=== PATIENT | male | born 1965 | race Caucasian/White ===

== ENCOUNTER 2018-07-23 11:14 | Emergency (ER) | payer BC ==
[2018-07-23 15:33] LABS: BASO % 0.2 % (0.0-1.0); EOS # 0.1 10^3/uL (0.0-0.50); EOS % 0.9 % (0.0-3.0); HEMATOCRIT 50.8 % (42.0-52.0); HEMOGLOBIN 17.1 g/dl (13.5-17.5); IMMATURE GRANULOCYTE % 0.5 % (0-3.0); LYMPH # 1.3 10^3/uL (1.5-4.5); LYMPH % 15.3 % (24.0-44.0); MEAN CORPUSCULAR HEMOGLOBIN 29.9 pg (27.0-33.0); MEAN CORPUSCULAR HGB CONC 33.7 g/dl (32.0-36.5); MONO # 0.4 10^3/uL (0.0-0.8); NEUTROPHILS % 79.1 % (36.0-66.0); PLATELET COUNT, AUTOMATED 187 10^3/uL (150-450); RED BLOOD COUNT 5.71 10^6/uL (4.30-6.10); RED CELL DISTRIBUTION WIDTH 13.5 % (11.5-14.5); WHITE BLOOD COUNT 8.8 10^3/uL (4.0-10.0)
[2018-07-23] MEDS: NS 1,000 ML IV (15:34)
[2018-07-23] MEDS: MECLIZINE 25 MG TABLET PO (15:34)
[2018-07-23] MEDS: ONDANSETRON 4MG/2ML VIAL (J2405) IV (15:34)
[2018-07-23 16:02] LABS: ANION GAP 8 MEQ/L (8-16); BLOOD UREA NITROGEN 7 MG/DL (7-18); CARBON DIOXIDE LEVEL 27 MEQ/L (21-32); CHLORIDE LEVEL 107 MEQ/L (98-107); CPK CREATINE PHOSPHOKINASE 92 U/L (39-308); CREATININE FOR GFR 0.75 MG/DL (0.70-1.30); GLOMERULAR FILTRATION RATE > 60.0 (>56); GLUCOSE, FASTING 104 MG/DL (70-100); POTASSIUM SERUM 4.1 MEQ/L (3.5-5.1); SODIUM LEVEL 142 MEQ/L (136-145); TROPONIN I < 0.02 NG/ML (< 0.10)
[2018-07-23 16:08] LABS: CK-MB VALUE MASS < 1.0 NG/ML (<3.6); MB/CK RELATIVE INDEX 1.08 (< OR =4); THYROID STIMULATING HORMONE 0.749 uIU/ML (0.358-3.740)
[2018-07-23] MEDS: diazePAM 5 MG TAB PO (16:54)
== END 2018-07-23 17:50 | disposition home or self-care (01) ==
LOC: M ED 11:14
DX: H81.10 Benign paroxysmal vertigo, unspecified ear (principal); R94.31 Abnormal electrocardiogram [ECG] [EKG]; I10 Essential (primary) hypertension; Z79.899 Other long term (current) drug therapy
CPT/HCPCS: J2405

== ENCOUNTER → 2018-08-12 | Outpatient (REF) | payer BC | LOC: M SMT 17:17 | DX: R97.20 Elevated prostate specific antigen [PSA] (principal) | CPT/HCPCS: 87086 ==

== ENCOUNTER 2018-08-13 14:39 | Outpatient (CLI) | payer BC | END 2018-08-26 | LOC: M SMT 14:39 → M SMT PRO 08-26 08:13 | DX: C61 Malignant neoplasm of prostate (principal); R97.20 Elevated prostate specific antigen [PSA] | CPT/HCPCS: 76872 ==

== ENCOUNTER → 2018-08-14 | Outpatient (REF) | payer BC | LOC: M LAB REF 09:48 | DX: R19.7 Diarrhea, unspecified (principal) | CPT/HCPCS: 87507 ==

== ENCOUNTER → 2018-08-26 | Outpatient (REF) | payer BC | LOC: M SMT 10:33 | DX: R97.20 Elevated prostate specific antigen [PSA] (principal) | CPT/HCPCS: G0416 ==

== ENCOUNTER → 2018-10-14 | Outpatient (REF) | payer BC ==
[2018-10-14 19:58] LABS: HEMATOCRIT 50.5 % (42.0-52.0); HEMOGLOBIN 16.3 g/dl (13.5-17.5); MEAN CORPUSCULAR HEMOGLOBIN 29.8 pg (27.0-33.0); MEAN CORPUSCULAR HGB CONC 32.3 g/dl (32.0-36.5); MEAN CORPUSCULAR VOLUME 92.3 fl (80.0-96.0); PLATELET COUNT, AUTOMATED 208 10^3/uL (150-450); RED BLOOD COUNT 5.47 10^6/uL (4.30-6.10); WHITE BLOOD COUNT 8.1 10^3/uL (4.0-10.0)
[2018-10-14 20:07] LABS: ANION GAP 7 MEQ/L (8-16); BLOOD UREA NITROGEN 11 MG/DL (7-18); CALCIUM LEVEL 9.2 MG/DL (8.5-10.1); CARBON DIOXIDE LEVEL 28 MEQ/L (21-32); CHLORIDE LEVEL 102 MEQ/L (98-107); CREATININE FOR GFR 0.84 MG/DL (0.70-1.30); GLOMERULAR FILTRATION RATE > 60.0 (>56); GLUCOSE, FASTING 100 MG/DL (70-100); POTASSIUM SERUM 4.4 MEQ/L (3.5-5.1); SODIUM LEVEL 137 MEQ/L (136-145)
[2018-10-14 20:09] LABS: INR 0.99; PROTHROMBIN TIME 13.2 SECONDS (12.1-14.4)
[2018-10-14 20:10] LABS: PARTIAL THROMBOPLASTIN TIME 31.4 SECONDS (25.4-37.6)
== END ==
LOC: M LABDRWAD 19:39
DX: Z01.818 Encounter for other preprocedural examination (principal); C61 Malignant neoplasm of prostate
CPT/HCPCS: 80048

== ENCOUNTER → 2018-10-14 | Outpatient (CLI) | payer BC | LOC: M ADAMS 11:17 | DX: C61 Malignant neoplasm of prostate (principal); Z01.818 Encounter for other preprocedural examination; N39.0 Urinary tract infection, site not specified | CPT/HCPCS: 71046 ==

== ENCOUNTER → 2018-10-14 | Outpatient (REF) | payer BC | LOC: M LABSMT 14:58 | DX: Z01.818 Encounter for other preprocedural examination (principal); C61 Malignant neoplasm of prostate; N39.0 Urinary tract infection, site not specified; Z53.8 Procedure and treatment not carried out for other reasons ==

== ENCOUNTER 2018-10-22 11:01 | Inpatient (IN) | payer MEDICARE, BC ==
[~2018-10-22 11:01] MED LIST: LIDOCAINE 1% MDV 20ML VIAL SQ
[2018-10-22] MEDS ORDERED: PROPOFOL 200 MG/20 ML VIAL As Ordered (11:06)
[2018-10-22] MEDS ORDERED: ROCURONIUM BROMIDE 50 MG/5 ML VIAL As Ordered ×3 (11:06→15:04)
[2018-10-22] MEDS ORDERED: LIDOCAINE 2% INJ 100 MG/5 ML SDV (FOR ANES.) As Ordered (11:06)
[2018-10-22] MEDS ORDERED: dexameTHASONE 4 MG/ML 1ML VIAL (J1100) As Ordered (11:06)
[2018-10-22] MEDS ORDERED: MIDAZOLAM INJ 2 MG/2 ML VIAL (J2250) As Ordered (11:07)
[2018-10-22] MEDS ORDERED: fentaNYL 250 MCG/5 ML INJECTION (J3010) As Ordered (11:07)
[2018-10-22] MEDS: LR 1,000 ML IV ×2 (11:15→18:15)
[2018-10-22] MEDS ORDERED: MORPHINE 4 MG/ML 1ML VIAL/SYRINGE (J2270) IV (12:45)
[2018-10-22] MEDS ORDERED: CYCLOBENZAPRINE 10 MG TAB PO (12:45)
[2018-10-22] MEDS: NS 1,000 ML IV ×3 (12:45→21:34)
[2018-10-22] MEDS ORDERED: ACETAMINOPHEN TAB 650MG DOSE (2X325MG) PO (12:45)
[2018-10-22] MEDS: HEPARIN SOD (PORCINE) 5000 UNITS/ML VIAL SQ (13:00)
[2018-10-22] MEDS ORDERED: HYDROmorphone HCL 2 MG/ML 1ML VIAL (J1170) As Ordered (13:15)
[2018-10-22] MEDS ORDERED: ONDANSETRON 4MG/2ML VIAL (J2405) As Ordered (15:43)
[2018-10-22] MEDS ORDERED: GLYCOPYRROLATE INJ 0.2 MG/ML 2 ML VIAL As Ordered ×2 (15:43)
[2018-10-22] MEDS: BUPIVACAINE HCL 0.25% 30 ML VIAL As Ordered (17:39)
[2018-10-22] MEDS: LIDOCAINE 1% SDV INJ 30 ML VIAL As Ordered (17:39)
[2018-10-22] MEDS ORDERED: ONDANSETRON 4MG/2ML VIAL (J2405) IV (18:15)
[2018-10-22] MEDS ORDERED: METOCLOPRAMIDE INJ 10MG/2ML VIAL (J2765) IV (18:15)
[2018-10-22] MEDS ORDERED: PERCOCET 5MG/325MG TAB PO (18:15)
[2018-10-22] MEDS ORDERED: MEPERIDINE INJ 25 MG/ML VIAL (J2175) IV (18:15)
[2018-10-22] MEDS: fentaNYL 100 MCG/2 ML INJECTION (J3010) IV ×2 (18:22→18:27)
[2018-10-22 18:40] LABS: HEMATOCRIT 47.5 % (42.0-52.0); HEMOGLOBIN 15.8 g/dl (13.5-17.5); MEAN CORPUSCULAR HGB CONC 33.3 g/dl (32.0-36.5); MEAN CORPUSCULAR VOLUME 90.1 fl (80.0-96.0); PLATELET COUNT, AUTOMATED 201 10^3/uL (150-450); RED BLOOD COUNT 5.27 10^6/uL (4.30-6.10); RED CELL DISTRIBUTION WIDTH 13.8 % (11.5-14.5); WHITE BLOOD COUNT 13.6 10^3/uL (4.0-10.0)
[2018-10-22 18:58] LABS: ANION GAP 10 MEQ/L (8-16); BLOOD UREA NITROGEN 15 MG/DL (7-18); CALCIUM LEVEL 8.5 MG/DL (8.5-10.1); CARBON DIOXIDE LEVEL 25 MEQ/L (21-32); CHLORIDE LEVEL 106 MEQ/L (98-107); CREATININE FOR GFR 1.11 MG/DL (0.70-1.30); GLOMERULAR FILTRATION RATE > 60.0 (>56); GLUCOSE, FASTING 155 MG/DL (70-100); POTASSIUM SERUM 4.4 MEQ/L (3.5-5.1); SODIUM LEVEL 141 MEQ/L (136-145)
[2018-10-22] MEDS: ceFAZolin SOD 1 GM in D5W MINI-BAG PLUS 50 ML IV (21:30)
[2018-10-22] MEDS: HEPARIN SOD (PORCINE) 5000 UNITS/ML VIAL SC (21:31)
[2018-10-22] MEDS: ALLOPURINOL 100 MG TAB PO (21:31)
[2018-10-22] MEDS: DOCUSATE SODIUM 100 MG CAP PO (21:32)
[2018-10-22] MEDS: METOPROLOL TART 50 MG TAB PO (21:33)
[2018-10-22] MEDS: PERCOCET 5MG/325MG TAB PO (21:34)
[2018-10-22] MEDS: ONDANSETRON 4MG/2ML VIAL (J2405) IV (23:36)
[2018-10-23] MEDS: PERCOCET 5MG/325MG TAB PO ×3 (02:15→20:05)
[2018-10-23] MEDS: HEPARIN SOD (PORCINE) 5000 UNITS/ML VIAL SC ×3 (05:22→21:18)
[2018-10-23] MEDS: ceFAZolin SOD 1 GM in D5W MINI-BAG PLUS 50 ML IV (05:22)
[2018-10-23 05:49] LABS: HEMATOCRIT 43.1 % (42.0-52.0); HEMOGLOBIN 14.4 g/dl (13.5-17.5); MEAN CORPUSCULAR HEMOGLOBIN 29.9 pg (27.0-33.0); MEAN CORPUSCULAR HGB CONC 33.4 g/dl (32.0-36.5); MEAN CORPUSCULAR VOLUME 89.6 fl (80.0-96.0); PLATELET COUNT, AUTOMATED 175 10^3/uL (150-450); RED BLOOD COUNT 4.81 10^6/uL (4.30-6.10); RED CELL DISTRIBUTION WIDTH 13.6 % (11.5-14.5)
[2018-10-23 06:18] LABS: ANION GAP 8 MEQ/L (8-16); BLOOD UREA NITROGEN 11 MG/DL (7-18); CALCIUM LEVEL 8.2 MG/DL (8.5-10.1); CARBON DIOXIDE LEVEL 28 MEQ/L (21-32); CHLORIDE LEVEL 102 MEQ/L (98-107); CREATININE FOR GFR 1.02 MG/DL (0.70-1.30); GLOMERULAR FILTRATION RATE > 60.0 (>56); GLUCOSE, FASTING 135 MG/DL (70-100); POTASSIUM SERUM 4.2 MEQ/L (3.5-5.1); SODIUM LEVEL 138 MEQ/L (136-145)
[2018-10-23] MEDS: NS 1,000 ML IV (06:42)
[2018-10-23] MEDS: ROSUVASTATIN 10 MG TAB (CRESTOR) PO (09:55)
[2018-10-23] MEDS: ALLOPURINOL 100 MG TAB PO ×2 (09:55→20:04)
[2018-10-23] MEDS: DOCUSATE SODIUM 100 MG CAP PO ×2 (09:55→20:04)
[2018-10-23] MEDS: METOPROLOL TART 50 MG TAB PO ×2 (09:55→20:03)
[2018-10-24] MEDS: HEPARIN SOD (PORCINE) 5000 UNITS/ML VIAL SC (05:38)
[2018-10-24 06:27] LABS: MEAN CORPUSCULAR HGB CONC 32.6 g/dl (32.0-36.5); MEAN CORPUSCULAR VOLUME 92.1 fl (80.0-96.0); PLATELET COUNT, AUTOMATED 143 10^3/uL (150-450); RED BLOOD COUNT 4.67 10^6/uL (4.30-6.10); WHITE BLOOD COUNT 8.9 10^3/uL (4.0-10.0)
[2018-10-24 06:46] LABS: ANION GAP 5 MEQ/L (8-16); BLOOD UREA NITROGEN 10 MG/DL (7-18); CALCIUM LEVEL 8.3 MG/DL (8.5-10.1); CARBON DIOXIDE LEVEL 30 MEQ/L (21-32); CHLORIDE LEVEL 105 MEQ/L (98-107); CREATININE FOR GFR 0.79 MG/DL (0.70-1.30); GLOMERULAR FILTRATION RATE > 60.0 (>56); GLUCOSE, FASTING 98 MG/DL (70-100); SODIUM LEVEL 140 MEQ/L (136-145)
[2018-10-24] MEDS: ALLOPURINOL 100 MG TAB PO (08:44)
[2018-10-24] MEDS: ROSUVASTATIN 10 MG TAB (CRESTOR) PO (08:44)
[2018-10-24] MEDS: CIPROFLOXACIN 500 MG TAB PO (08:44)
[2018-10-24] MEDS: DOCUSATE SODIUM 100 MG CAP PO (08:45)
[2018-10-24] MEDS: METOPROLOL TART 50 MG TAB PO (08:45)
[2018-10-24] MEDS: PERCOCET 5MG/325MG TAB PO (08:47)
== END 2018-10-24 11:59 | disposition home health service (06) | DRG 708 ==
LOC: M OR 11:01 → M MSPAV 18:55
PROC: 0VT04ZZ Resection of Prostate, Percutaneous Endoscopic Approach (ICD-10-PCS; principal; 2018-10-22 12:27)
PROC: 07TC4ZZ Resection of Pelvis Lymphatic, Percutaneous Endoscopic Approach (ICD-10-PCS; 2018-10-22 12:27)
DX: C61 Malignant neoplasm of prostate (principal); Z79.899 Other long term (current) drug therapy; I10 Essential (primary) hypertension; E78.00 Pure hypercholesterolemia, unspecified; M10.9 Gout, unspecified; M19.90 Unspecified osteoarthritis, unspecified site; Z79.82 Long term (current) use of aspirin; F41.9 Anxiety disorder, unspecified; M51.36 Other intervertebral disc degeneration, lumbar region

== ENCOUNTER → 2018-11-25 | Outpatient (REF) | payer MEDICARE, BC ==
[~2018-11-25] MED LIST changes: +/THIA10TA; +ACE65ERTAB PO; +ALLO10TA PO; +ASPI325T; +BUSP10TA2; +CIPR-249 PO; +CIPR500T19 PO; +COLA100C5 PO; +CRES40TA PO; +CYCL10TA PO; +ECOT325T5; +FOLI1TAB; -LIDOCAINE 1% MDV 20ML VIAL SQ; +MECL-68 PO; +METO50TA7 PO; +NORCOTAB PO; +PERC5TAB12 PO; +TOPR50TA; +VALI5TAB PO; +ZOFR4TAB14 PO
== END ==
LOC: M SMT 12:12
PROVIDERS: ATTEND Urology
DX: C61 Malignant neoplasm of prostate (principal)

== ENCOUNTER → 2019-03-25 | Outpatient (REF) | payer BC ==
[~2019-03-25] MED LIST changes: +HYDR-3715 PO; +METO-743; -NORCOTAB PO; -TOPR50TA
== END ==
LOC: M SFHCADAM 11:15
PROVIDERS: ATTEND Urology
DX: C61 Malignant neoplasm of prostate (principal)

== ENCOUNTER → 2019-07-21 | Outpatient (REF) | payer BC | LOC: M SFHCADAM 09:24 | PROVIDERS: ATTEND Urology | DX: C61 Malignant neoplasm of prostate (principal) ==

== ENCOUNTER → 2019-10-22 | Outpatient (REF) | payer BC ==
[~2019-10-22] MED LIST changes: +ALEV220T22 PO; +CHOL100029 PO; +MULTCAP PO; +SILD100T PO
== END ==
LOC: M SFHCADAM 11:15
PROVIDERS: ATTEND Urology
DX: C61 Malignant neoplasm of prostate (principal)

== ENCOUNTER 2019-10-29 08:48 | Day surgery (SDC) | payer BC ==
[~2019-10-29] VITALS: Ht 188 cm; Wt 114.8 kg
[~2019-10-29 08:48] MED LIST changes: +LIDOCAINE 2% INJ 100 MG/5 ML SDV (FOR ANES.) As Ordered ONE; +PROPOFOL 200 MG/20 ML VIAL As Ordered ONE
[2019-10-29] MEDS ORDERED: NS 1,000 ML IV ONE (10:00)
[2019-10-29] MEDS ORDERED: PROPOFOL 200 MG/20 ML VIAL As Ordered ONE (10:18)
--- NOTE | 2019-10-29 10:24 | ROOR ---
Patient Name: Adal Roberts Procedure Date: 10/29/2019 10:01 AM Date of : 1965 Age: 54 Room: [facility] Gender: Male Note Status: Finalized Procedure: Colonoscopy Indications: High risk colon cancer surveillance: Personal history of colonic polyps Providers: Cem CRAWFORD MD Referring MD: Cary Cooley MD, [facility], Admin. Requesting Provider: Medicines: Monitored Anesthesia Care Complications: No immediate complications. Procedure: Pre-Anesthesia Assessment: - The heart rate, respiratory rate, oxygen saturations, blood pressure, adequacy of pulmonary ventilation, and response to care were monitored throughout the procedure. The Colonoscope was introduced through the anus and advanced to the terminal ileum, with identification of the appendiceal orifice and IC valve. The colonoscopy was performed without difficulty. The patient tolerated the procedure well. The quality of the bowel preparation was good. Findings: The perianal and digital rectal examinations were normal. Two sessile polyps were found in the sigmoid colon and ascending colon. The polyps were 3 to 5 mm in size. These polyps were removed with a cold snare. Resection and retrieval were complete. Small Internal Hemorrhoids. The exam was otherwise without abnormality on direct and retroflexion views. Impression: - Two 3 to 5 mm polyps in the sigmoid colon and in the ascending colon, removed with a cold snare. Resected and retrieved. - Small Internal Hemorrhoids. - The examination was otherwise normal on direct and retroflexion views. Recommendation: - Repeat colonoscopy in 5 years for surveillance. Cem Crawford MD Cem CRAWFORD MD 10/29/2019 10:24:30 AM Electronically signed by Cem CRAWFORD MD Number of Addenda: 0 Note Initiated On: 10/29/2019 10:01 AM Estimated Blood Loss: Estimated blood loss: none.
[2019-10-29 10:45] VITALS: BP 145/89
== END 2019-10-29 11:02 | disposition home or self-care (01) ==
LOC: M OPP 08:48
PROVIDERS: ATTEND Internal Medicine Gastroenterology
DX: Z12.11 Encounter for screening for malignant neoplasm of colon (principal); Z86.010 Personal history of colon polyps; D12.5 Benign neoplasm of sigmoid colon; D12.2 Benign neoplasm of ascending colon; K64.8 Other hemorrhoids; Z79.82 Long term (current) use of aspirin; Z79.899 Other long term (current) drug therapy; F17.210 Nicotine dependence, cigarettes, uncomplicated

== ENCOUNTER → 2020-02-01 | Outpatient (REF) | payer BC ==
[~2020-02-01] MED LIST changes: -LIDOCAINE 2% INJ 100 MG/5 ML SDV (FOR ANES.) As Ordered ONE; -MECL-68 PO; +MECL1TAB31 PO; -PROPOFOL 200 MG/20 ML VIAL As Ordered ONE
== END ==
LOC: M SFHCADAM 10:43
PROVIDERS: ATTEND Urology
DX: C61 Malignant neoplasm of prostate (principal)

== ENCOUNTER → 2020-04-20 | Outpatient (REF) | payer BC ==
[~2020-04-20] MED LIST changes: +CYCL-707 PO; -CYCL10TA PO
== END ==
LOC: M SFHCADAM 13:45
PROVIDERS: ATTEND Urology
DX: C61 Malignant neoplasm of prostate (principal)

== ENCOUNTER → 2020-10-03 | Outpatient (REF) | payer OTHER ==
[2020-10-03 14:25] LABS: ALBUMIN 3.8 GM/DL (3.2-5.2); ALT/SGPT 50 U/L (12-78); BILIRUBIN,TOTAL 0.9 MG/DL (0.2-1.0); BLOOD UREA NITROGEN 10 MG/DL (7-18); CALCIUM LEVEL 9.2 MG/DL (8.5-10.1); CARBON DIOXIDE LEVEL 30 MEQ/L (21-32); CHLORIDE LEVEL 104 MEQ/L (98-107); CHOLESTEROL LEVEL 167 MG/DL (<200); CHOLESTEROL RISK RATIO 3.274 (<5); CREATININE FOR GFR 0.88 MG/DL (0.70-1.30); GLOMERULAR FILTRATION RATE > 60.0 (>56); GLUCOSE, FASTING 87 MG/DL (70-100); HDL CHOLESTEROL 51 MG/DL (>40); LDL CHOLESTEROL 76 MG/DL (<100); NON-HDL-C 116 MG/DL; POTASSIUM SERUM 4.4 MEQ/L (3.5-5.1); SODIUM LEVEL 139 MEQ/L (136-145); TOTAL PROTEIN 6.9 GM/DL (6.4-8.2); TRIGLYCERIDES LEVEL 198 MG/DL (<150); URIC ACID 3.5 MG/DL (3.5-7.2)
== END ==
LOC: M LABDRWAD 12:44
PROVIDERS: ATTEND Physician Assistant Medical
DX: E78.2 Mixed hyperlipidemia (principal); M10.9 Gout, unspecified

== ENCOUNTER → 2020-10-24 | Outpatient (REF) | payer OTHER | LOC: M SFHCADAM 09:55 | PROVIDERS: ATTEND Urology | DX: C61 Malignant neoplasm of prostate (principal) ==

== ENCOUNTER → 2021-04-18 | Outpatient (CLI) | payer OTHER ==
[~2021-04-18] MED LIST changes: +ISOVUE-300 61% 50ML VIAL As Ordered ONE; +LIDOCAINE 1% MDV 20ML VIAL As Ordered ONE; +TRIAMCINOLONE ACETONIDE SUSP 40 MG/ML VIAL (J3301) As Ordered ONE
--- NOTE | 2021-04-19 13:14 | REP ---
INDICATION: OA RT HIP. COMPARISON: None. TECHNIQUE: The procedure was performed under the direct supervision of Dr. Parra. The benefits and risks including but not limited to pain infection and bleeding and anaphylaxis were explained to the patient and informed consent was obtained. The right femoral neck was localized using fluoroscopic guidance. The skin was prepped and draped in a sterile fashion. 1% lidocaine was used as a local anesthetic. Using fluoroscopic guidance, and last image hold technology, a 22-gauge spinal needle was inserted and advanced to the femoral neck. 0.5 ml of Isovue-300 was injected to verify placement. Six ml of a solution containing 5 ml of 1% Xylocaine and 1 mL of Kenalog 40 mg was injected. The needle was then removed. The patient tolerated the procedure well and there were no immediate complications. Less than 6 seconds of fluoro time was utilized for this procedure. FINDINGS: None IMPRESSION: Fluoro guidance for right hip injection. <Electronically signed by Ferny Roberto > 04/18/21 [id number] <Electronically signed by Toby Parra > 04/19/21 [id number]
== END ==
LOC: M RADPRO 12:36
PROVIDERS: ATTEND Orthopaedic Surgery
DX: M16.11 Unilateral primary osteoarthritis, right hip (principal)
CPT/HCPCS: 20610; 77002; J3301; Q9967

== ENCOUNTER → 2021-04-24 | Outpatient (REF) | payer OTHER ==
[~2021-04-24] MED LIST changes: -ISOVUE-300 61% 50ML VIAL As Ordered ONE; -LIDOCAINE 1% MDV 20ML VIAL As Ordered ONE; -TRIAMCINOLONE ACETONIDE SUSP 40 MG/ML VIAL (J3301) As Ordered ONE
== END ==
LOC: M SFHCADAM 09:53
PROVIDERS: ATTEND Urology
DX: C61 Malignant neoplasm of prostate (principal)

== ENCOUNTER 2021-09-18 08:17 | Emergency (ER) | payer OTHER, MEDICARE ==
[~2021-09-18] VITALS: Ht 188 cm; Wt 112.1 kg
--- OUTSIDE RECORDS SUMMARY | 2021-09-18 08:24 | CCD | Continuity of Care Document ---
Author Author Adal PRINCE MD Organization Unknown Address [address] [place] [address], [address] [address] Phone [phone] Care Team Providers Care Criminology Teacher Name Role Phone Cary Cooley MD [facility] [phone] Problems Description No Active Problems Social History Type Date Description Comments Sex Unknown ETOH Use Currently consumes alcohol daily Tobacco Use Start: Unknown End: Unknown Patient is a former smoker quit 15 yrs ago Allergies, Adverse Reactions, Alerts Description No Known Drug Allergies Medications Active Medications SIG Qnty Indications Ordering Provide r Date One Daily Tablets po qd Unknown Fish Oil Capsules Unknown Aspir-[address] ever y day Unknown Allopurinol 100mg Tablets 1 by mouth every day Unknown Metoprolol Succinate ER 50mg Tablets ER 24HR 1 by mouth every day mdd 1 Unknown 0 Statin ([place] Given) Unknown Immunizations Description No Information Available Vital Signs Date Vital Result Comment 04/03/2021 9:36am Body Temperature 97.3 F Height 74.5 inches 6'2.50" Weight 254.00 lb BMI (Body Mass Index) 32.2 kg/m2 07/04/2018 2:49pm Body Temperature 98.1 F Height 73 inches 6'1" Weight 251.50 lb BMI (Body Mass Index) 33.2 kg/m2 Results Description No Information Available Procedures Date Code Description Status 07/19/2021 58491 Office/Outpatient Established Mo d MDM 30-39 Min Completed 07/19/2021 80784 Inject/Drain Joint/Bursa Major C ompleted 04/03/2021 68669 Office/Outpatient Established Mo d MDM 30-39 Min Completed 04/03/2021 28038 X-Ray Hip Unilateral With Pelvis 2-3 Views Completed Medical Devices Description No Information Available Encounters Type Date Location Provider Dx Diagnosis Office Visit 07/19/2021 1:30p [place] Geoff Prince MD M16.11 Unilateral primary osteoarthritis, right hip Office Visit 04/03/2021 9:30a [place] Geoff Prince MD M16.11 Unilateral primary osteoarthritis, right hip Assessments Date Code Description Provider 07/19/2021 M16.11 Unilateral primary osteoarthriti s, right hip Geoff Prince MD 04/03/2021 M16.11 Unilateral primary osteoarthriti s, right hip Geoff Prince MD Plan of Treatment Future Appointment(s):* 08/23/2021 2:00 pm - Shahid White, [facility] at [place] 07/19/2021 - Geoff Prince MD* M16.11 Unilateral primary osteoarthritis, right hip* Follow up:* with MKM or IID for new low back eval in 2 months with SBF with xrays Functional Status Description No Information Available Mental Status Description No Information Available Referrals Refer to Reason for Referral Status Appt Date Geoff Prince MD FLUORO INJ NO AUTH REQUIRED PER KVNG Kuo FOR FLUOROSCOPIC INJECTION TO RIGHT HIP ([id number]) TO BRANDON Parra [facility], [address] [place] [address] [phone]
--- OUTSIDE RECORDS SUMMARY | 2021-09-18 08:24 | CCD | Continuity of Care Document ---
Author Author Adal PRINCE MD Organization Unknown Address [address] [place] [address], [address] [address] Phone [phone] Care Team Providers Care Cloth Washer Back Tender Name Role Phone Cary Cooley MD [facility] [phone] Problems Description No Active Problems Social History [...] every day mdd 1 Unknown 0 Statin ([place] Given) Unknown Immunizations Description No Information Available Vital Signs Date Vital Result Comment 04/03/2021 9:36am Body Temperature 97.3 F Height 74.5 inches 6'2.50" Weight 254.00 lb BMI (Body Mass Index) 32.2 kg/m2 07/04/2018 2:49pm Body Temperature 98.1 F Height 73 inches 6'1" Weight 251.50 lb BMI (Body Mass Index) 33.2 kg/m2 Results Description No Information Available Procedures Date Code Description Status 07/19/2021 90280 Office/Outpatient Established Mo d MDM 30-39 Min Completed 07/19/2021 67974 Inject/Drain Joint/Bursa Major C ompleted 04/03/2021 22347 Office/Outpatient Established Mo d MDM 30-39 Min Completed 04/03/2021 04428 X-Ray Hip Unilateral With Pelvis 2-3 Views Completed Medical Devices Description No Information Available Encounters Type Date Location Provider Dx Diagnosis Office Visit 07/19/2021 1:30p Julio Prince MD M16.11 Unilateral primary osteoarthritis, right hip Office Visit 04/03/2021 9:30a Julio Prince MD M16.11 Unilateral primary osteoarthritis, right hip Assessments Date Code Description Provider 07/19/2021 M16.11 Unilateral primary osteoarthriti s, right hip Geoff Prince MD 04/03/2021 M16.11 Unilateral primary osteoarthriti s, right hip Geoff Prince MD Plan of Treatment 07/19/2021 - Geoff Prince MD* M16.11 Unilateral primary osteoarthritis, right hip* Follow up:* with MKM or IID for new low back eval in 2 months with SBF with xrays Functional Status Description No Information Available Mental Status Description No Information Available Referrals Refer to Dr Reason for Referral Status Appt Date Geoff Prince MD FLUORO INJ NO AUTH REQUIRED PER KVNG Kuo FOR FLUOROSCOPIC INJECTION TO RIGHT HIP ([id number]) TO BRANDON Judd [facility] Created [address] [facility], [address] [place] [address] [phone]
--- OUTSIDE RECORDS SUMMARY | 2021-09-18 08:24 | CCD ---
Author Author [facility] [employer] Organization [facility] [employer] Address Unknown Phone Unavailable Care Team Providers Care Fire Pot Operator Name Role Phone Carolina Murphy Unavailable PROBLEMS Type Condition ICD9-CM Code PAF21-RT Code Onset Dates Condition S tatus W/U Status Risk SNOMED Code Notes Problem UTI (urinary tract infection) N39.0 Active confirm ed 45269317 Problem Erectile dysfunction after radical prostatectomy N 52.31 Active confirmed 743735963 Problem Elevated PSA R97.20 Active confirmed 5626998 05 Problem Prostate cancer C61 Active confirmed 2549 26653 Problem BPH loc w urin obs/LUTS N40.1 Active confirmed 838992890 Problem Preop testing Z01.818 Active confirmed 54902 9001 ALLERGIES No Known Allergies ENCOUNTERS from 1965 to 2021-09-14 Encounter Location Date Provider Diagnosis [facility] [address] [place] [address] [place] [address] Aug, Carolina Murphy Skin cancer screening Z12.83 ; Tinea corporis B35.4 ; Tinea pedis of both feet B35.3 and Actinic keratosis L57.0 IMMUNIZATIONS No Information SOCIAL HISTORY Tobacco Use: Social History Observation Description Date Details (start date - stop date) Former Smoker Sex Assigned At : Social History Observation Description Sex Assigned At Unknown Education: Question Answer Notes Level of Education: Finished College Language: Question Answer Notes Languages spoken: [place] Samaritan: Question Answer Notes Samaritan No mormon beliefs that would impact health care. Sexual Hx: Question Answer Notes Had sex in the last 12 months (vaginal, oral, or anal)? Yes Have you ever had an STD? No Use protection? No Alcohol Screening: Question Answer Notes Did you have a drink containing alcohol in the past year? Ye s Points 8 Interpretation Positive How often did you have six or more drinks on one occas ion in the past year? Monthly (2 points) How many drinks did you have on a typica l day when you were drinking in the past year? 5 or 6 (2 points) How often did you have a drink containing alcohol in t he past year? Four or more times a week (4 points) Tobacco Use: Question Answer Notes Are you a: former smoker SMOKED 1.5 PACKS PER DAY STARTED IN 1980 AND QUIT 1999 REASON FOR REFERRAL No Information VITAL SIGNS Weight 245.6 lbs Aug, Weight-kg 111.4 kg Aug, Height 73 in Aug, BMI 32.40 kg/m2 Aug, Blood pressure systolic 140 mm Hg Aug, Blood pressure diastolic 80 mm Hg Aug, MEDICATIONS Medication SIG (Take, Route, Frequency, Duration) Notes Start Da te End Date Status Meclizine HCl 25 MG 1 tablet as needed Orally Once a day Not-Taking Fish Oil 1200 MG 1 capsule Orally Once a day Active Colchicine 0.6 MG 1 tablet Orally Once a day Not-Taking Allopurinol 100 MG 1 tablet Orally Once a day Active Metoprolol Tartrate 50 MG 1 tablet with food Orally Twice a day Active Vitamin D3 1000 UNIT 1 capsule Orally Once a day for 30 day(s) bid Active Crestor 40 MG 1 tablet Orally Once a day Active Viagra 100 MG 1 tablet Orally on Mondays, Wednesdays, and ays Oct, Active Econazole Nitrate 1 % 1 application Externally Twi ce daily to chest, back, arms, feet for 21 days Aug, Active Fleet Enema 7-19 GM/118ML as directed Rectal the eula ng of your biopsy for 1 dose(s) Jul, Not-Taking Aspirin 81 MG 1 tablet Orally Once a day Active Percocet 5-325 MG 1-2 tablet(s) Orally every 6 hrs as needed for pain (MDD 8) Oct, Not-Taking Ciprofloxacin HCl 500 MG 1 tablet Orally Daily for 10 day(s) Oct, Not-Taking Multi Complete - Orally Active Griseofulvin Microsize 500 MG 1 tablet with a meal Ora lly Twice a day for 14 day(s) Aug, Active Flomax 0.4 MG 1 capsule Orally Daily Aug, Not-Taking Ciprofloxacin HCl 500 MG 1 tablet the night before yo ur biopsy and 1 the morning of Orally every 12 hrs for 1 days Jul, Not-Taking Cyclobenzaprine HCl 10 MG 1 tablet as needed Orally Three times a day Active Colace 100 MG 1 capsule Orally bid for 10 day(s) Oct, 018 Not-Taking Colcrys 0.6 MG 1 tablet Orally Once a day Not-Taking PROCEDURES No Information RESULTS No Results REASON FOR VISIT fbse MEDICAL (GENERAL) HISTORY Type Description Date Medical History SINGLE EPSIODE OF A-FIB 2009 Medical History OSTEOARTHRITIS Medical History HTN Medical History HYPERCHOLESTEROLEMIA Medical History GOUT Medical History VERTIGO Medical History ANXIETY Medical History 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 Medical History ELEVATED PSA Surgical History APPENDECTOMY 1985 Surgical History RIGHT KNEE ARTHROSCOPY Surgical History SURGERY TO CORRECT RIGHT LAZY EYE X2 Surgical History LEFT HAD SX DUE TO SAW INJURY Surgical History COLONOSCOPY = SESSILE SERRATED POLYP AND TUBULAR ADENOMA 09/02/2016 Surgical History trus biopsy (prostate) 08/26/2018 Surgical History RADICAL PROSTATECTOMY 10/22/2018 Hospitalization History SX RELATED Goals Section No Information Health Concerns No Information MEDICAL EQUIPMENT No Information MENTAL STATUS No Information FUNCTIONAL STATUS No Information ASSESSMENTS Encounter Date Diagnosis Assessment Notes Treatment Notes Treatm ent Clinical Notes Aug, Skin cancer screening (ICD-10 - Z12.83) Patient counseled on signs and symptoms of skin cancer including ABCDE's of Melanoma. Patient counseled to wear sunscreen or use sun protective clothing when outdoors. Avoid peak hours of sun between 10-2. Patient instructed to call with any new or changing lesions. Aug, Tinea corporis (ICD-10 - B35.4) Aug, Tinea pedis of both feet (ICD-10 - B35.3) Aug, Actinic keratosis (ICD-10 - L57.0) Cryotherapy x [1 L ear helix] number of sites. [place] protocol was followed in compliance with [facility] standards. Patient was counseled regarding the indication for treatment (precancerous state for actinic keratosis or cosmetic reasons if done for seborrheic keratoses, acrochordons or warts) as well as, the method and expected results to include compromise of the skin barrier, bleeding, scarring/white area, redness at site, lesion recurrence, and pain. Patient was consented to the risks and benefits of the procedure and gave informed consent. Lesion(s) with locations as indicated in the physical examination were treated. Lesion(s) were treated with 2 cycles of liquid nitrogen with a thaw time of at least ten seconds. Therapy was applied in a pulsed fashion to minimize collateral tissue injury. Patient was instructed to use Vaseline ointment to the area(s) until healed. Patient tolerated the procedure well and left in stable condition. Pain before and after the procedure were assessed to not be significantly different than baseline. PLAN OF TREATMENT Medication Medication Name Sig Start Date Stop Date Griseofulvin Microsize 500 MG 1 tablet with a meal Ora lly Twice a day for 14 day(s) Aug, Econazole Nitrate 1 % 1 application Externally Twi ce daily to chest, back, arms, feet for 21 days Aug, Treatment Notes Assessment Notes Clinical Notes Skin cancer screening Patient counseled on signs and symptoms of skin cancer including ABCDE's of Melanoma. Patient counseled to wear sunscreen or use sun protective clothing when outdoors. Avoid peak hours of sun between 10-2. Patient instructed to call with any new or changing lesions. Actinic keratosis Cryotherapy x [1 L e ar helix] number of sites. [place] protocol was followed in compliance with [facility] standards. Patient was counseled regarding the indication for treatment (precancerous state for actinic keratosis or cosmetic reasons if done for seborrheic keratoses, acrochordons or warts) as well as, the method and expected results to include compromise of the skin barrier, bleeding, scarring/white area, redness at site, lesion recurrence, and pain. Patient was consented to the risks and benefits of the procedure and gave informed consent. Lesion(s) with locations as indicated in the physical examination were treated. Lesion(s) were treated with 2 cycles of liquid nitrogen with a thaw time of at least ten seconds. Therapy was applied in a pulsed fashion to minimize collateral tissue injury. Patient was instructed to use Vaseline ointment to the area(s) until healed. Patient tolerated the procedure well and left in stable condition. Pain before and after the procedure were assessed to not be significantly different than baseline. Next Appt Details 2 Weeks Reason:Rash F/U Provider Name:Carolina Murphy, 09:30:00 AM, [address] [facility], , [place], [address], Provider Name:Cristobal Rowe, 11:15:00 AM, [address] , , [place], [address], Follow Up:2 WeeksRash F/U Insurance Providers Payer Name Payer Address Payer Phone Insured Name Patient Relati onship to Insured Coverage Start Date Coverage End Date [facility] [id number] [facility] [id number] VALENTINO ROBERTS self
--- OUTSIDE RECORDS SUMMARY | 2021-09-18 08:24 | CCD ---
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 Name Role Phone Fish, B Geoff TERAN Unavailable Unavailable Fish, B Geoff TERAN Unavailable Unavailable Fish, B Geoff TERAN Unavailable Unavailable Fish, B Geoff TERAN Unavailable Unavailable Fish, B Geoff TERAN Unavailable Unavailable Fish, B Geoff TERAN Unavailable Unavailable Fish, B Geoff TERAN Unavailable Unavailable Fish, B Geoff TERAN Unavailable Unavailable Fish, B Geoff TERAN Unavailable Unavailable Fish, B Geoff TERAN Unavailable Unavailable Fish, B Geoff TERAN Unavailable Unavailable Fish, B Geoff TERAN Unavailable Unavailable Fish, B Geoff TERAN Unavailable Unavailable Fish, B Geoff TERAN Unavailable Unavailable Fish, B Geoff TERAN Unavailable Unavailable Fish, B Geoff TERAN Unavailable Unavailable Fish, B Geoff TERAN Unavailable Unavailable Fish, B Geoff TERAN Unavailable Unavailable Fish, B Geoff TERAN Unavailable Unavailable Fish, B Geoff TERAN Unavailable Unavailable Fish, B Geoff TERAN Unavailable Unavailable Fish, B Geoff TERAN Unavailable Unavailable Fish, B Geoff TERAN Unavailable Unavailable Fish, B Geoff TERAN Unavailable Unavailable Fish, B Geoff TERAN Unavailable Unavailable Fish, B Geoff TERAN Unavailable Unavailable Fish, B Geoff TERAN Unavailable Unavailable Fish, B Geoff TERAN Unavailable Unavailable Fish, B Geoff TERAN Unavailable Unavailable Fish, B Geoff TERAN Unavailable Unavailable Fish, B Geoff TERAN Unavailable Unavailable Fish, B Geoff TERAN Unavailable Unavailable Fish, B Geoff TERAN Unavailable Unavailable Fish, B Geoff TERAN Unavailable Unavailable Fish, B Geoff TERAN Unavailable Unavailable Fish, B Geoff TERAN Unavailable Unavailable Fish, B Geoff TERAN Unavailable Unavailable Fish, B Geoff TERAN Unavailable Unavailable Fish, B Geoff TERAN Unavailable Unavailable Fish, B Geoff TERAN Unavailable Unavailable Fish, B Geoff TERAN Unavailable Unavailable Fish, B Geoff TERAN Unavailable Unavailable Fish, B Geoff TERAN Unavailable Unavailable Fish, B Geoff TERAN Unavailable Unavailable Fish, B Geoff TERAN Unavailable Unavailable Fish, B Geoff TERAN Unavailable Unavailable Fish, B Geoff TERAN Unavailable Unavailable Fish, B Geoff TERAN Unavailable Unavailable Fish, B Geoff TERAN Unavailable Unavailable Fish, B Geoff TERAN Unavailable Unavailable Fish, B Geoff TERAN Unavailable Unavailable Fish, B Geoff TERAN Unavailable Unavailable Fish, B Geoff TERAN Unavailable Unavailable Fish, B Geoff TERAN Unavailable Unavailable Fish, B Geoff TERAN Unavailable Unavailable Fish, B Geoff TERAN Unavailable Unavailable Petrancosta, Goodhue Rosa Maria PA-C Unavailable Unavailabl e Petrancosta, Goodhue Rosa Maria PA-C Unavailable Unavailabl e Petrancosta, Goodhue Rosa Maria PA-C Unavailable Unavailabl e Petrancosta, Goodhue Rosa Maria PA-C Unavailable Unavailabl e Petrancosta, Goodhue Rosa Maria PA-C Unavailable Unavailabl e Petrancosta, Goodhue Rosa Maria PA-C Unavailable Unavailabl e Petrancosta, Goodhue Rosa Maria PA-C Unavailable Unavailabl e Petrancosta, Goodhue Rosa Maria PA-C Unavailable Unavailabl e Petrancosta, Goodhue Rosa Maria PA-C Unavailable Unavailabl e Petrancosta, Goodhue Rosa Maria PA-C Unavailable Unavailabl e Petrancosta, Goodhue Rosa Maria PA-C Unavailable Unavailabl e Petrancosta, Goodhue Rosa Maria PA-C Unavailable Unavailabl e Petrancosta, Goodhue Rosa Maria PA-C Unavailable Unavailabl e Petrancosta, Goodhue Rosa Maria PA-C Unavailable Unavailabl e Petrancosta, Goodhue Rosa Maria PA-C Unavailable Unavailabl e Petrancosta, Goodhue Rosa Maria PA-C Unavailable Unavailabl e Petrancosta, Goodhue Rosa Maria PA-C Unavailable Unavailabl e Petrancosta, Goodhue Rosa Maria PA-C Unavailable Unavailabl e Petrancosta, Goodhue Rosa Maria PA-C Unavailable Unavailabl e Petrancosta, Goodhue Rosa Maria PA-C Unavailable Unavailabl e Petrancosta, Goodhue Rosa Maria PA-C Unavailable Unavailabl e Petrancosta, Goodhue Rosa Maria PA-C Unavailable Unavailabl e Petrancosta, Goodhue Rosa Maria PA-C Unavailable Unavailabl e Petrancosta, Goodhue Rosa Maria PA-C Unavailable Unavailabl e Petrancosta, Goodhue Rosa Maria PA-C Unavailable Unavailabl e Yasir, Gina Townsend MD Unavailable Unavailable Yasir, A Cary TERAN Unavailable Unavailable Yasir, A Cary TERAN Unavailable Unavailable Yasir, Gina Townsend MD Unavailable Unavailable Yasir, Gina Townsend MD Unavailable Unavailable Yasir, Gina Townsend MD Unavailable Unavailable Yasir, A Cary TERAN Unavailable Unavailable Yasir, A Cary TERAN Unavailable Unavailable Yasir, Gina Townsend MD Unavailable Unavailable Yasir, A Cary TERAN Unavailable Unavailable Yasir, Gina Townsend MD Unavailable Unavailable Yasir, Gina Townsend MD Unavailable Unavailable Yasir, Gina Townsend MD Unavailable Unavailable Yasir, Gina Townsend MD Unavailable Unavailable Yasir, A Cary TERAN Unavailable Unavailable Yasir, A Cary TERAN Unavailable Unavailable Yasir, A Cary TERAN Unavailable Unavailable Yasir, A Cary TERAN Unavailable Unavailable Yasir, A Cary TERAN Unavailable Unavailable Yasir, A Cary TERAN Unavailable Unavailable Yasir, A Cary TERAN Unavailable Unavailable Aysir, Gina Townsend MD Unavailable Unavailable Yasir, Gina Townsend MD Unavailable Unavailable Yasir, Gina Townsend MD Unavailable Unavailable Yasir, Gina Townsend MD Unavailable Unavailable Yasir, Gina Townsend MD Unavailable Unavailable Yasir, Gina Townsend MD Unavailable Unavailable Yasir, Gina Townsend MD Unavailable Unavailable Yasir, Gina Townsend MD Unavailable Unavailable Yasir, Gina Townsend MD Unavailable Unavailable Yasir, Gina Townsend MD Unavailable Unavailable Yasir, A Cary TERAN Unavailable Unavailable Yasir, A Cayr TERAN Unavailable Unavailable Yasir, A Cary TERAN Unavailable Unavailable Yasir, A Cary TERAN Unavailable Unavailable Yasir, A Cary TERAN Unavailable Unavailable Yasir, A Cary TERAN Unavailable Unavailable Yasir, A Cary TERAN Unavailable Unavailable Yasir, A Cary TERAN Unavailable Unavailable Yasir, A Cary TERAN Unavailable Unavailable Yasir, A Cary TERAN Unavailable Unavailable Yasir, A Cary TERAN Unavailable Unavailable Yasir, A Cary TERAN Unavailable Unavailable Yasir, A Cary MD Unavailable Unavailable Yasir, A Cary MD Unavailable Unavailable Yasir, A Cary MD Unavailable Unavailable Yasir, A Cary MD Unavailable Unavailable Yasir, A Cary MD Unavailable Unavailable Yasir, A Cary MD Unavailable Unavailable Yasir, A Cary MD Unavailable Unavailable Yasir, A Cary MD Unavailable Unavailable Yasir, A Cary MD Unavailable Unavailable Yasir, A Cary MD Unavailable Unavailable Yasir, A Cary MD Unavailable Unavailable Yasir, A Cary MD Unavailable Unavailable Yasir, A Cary MD Unavailable Unavailable Yasir, A Cary MD Unavailable Unavailable Yasir, A Cary MD Unavailable Unavailable Yasir, A Cary MD Unavailable Unavailable Yasir, A Cary MD Unavailable Unavailable Yasir, A Cary MD Unavailable Unavailable Yasir, A Cary MD Unavailable Unavailable Yasir, A Cary MD Unavailable Unavailable Yasir, A Cary MD Unavailable Unavailable Yasir, A Cary MD Unavailable Unavailable Yasir, A Cary MD Unavailable Unavailable Yasir, A Cary MD Unavailable Unavailable Yasir, A Cary MD Unavailable Unavailable Yasir, A Cary MD Unavailable Unavailable Yasir, A Cary MD Unavailable Unavailable Yasir, A Cary MD Unavailable Unavailable Yasir, A Cary MD Unavailable Unavailable Yasir, A Cary MD Unavailable Unavailable Yasir, A Cary MD Unavailable Unavailable Yasir, A Cary MD Unavailable Unavailable Yasir, A Cary MD Unavailable Unavailable Yasir, A Cary MD Unavailable Unavailable Yasir, A Cary MD Unavailable Unavailable Yasir, A Cary MD Unavailable Unavailable Yasir, A Cary MD Unavailable Unavailable Yasir, A Cary MD Unavailable Unavailable Yasir, A Cary MD Unavailable Unavailable Re-disclosure Warning The records that you are about to access may contain information from federally-assisted alcohol or drug abuse programs. If such information is present, then the following federally mandated warning applies: This information has been disclosed to you from records protected by federal confidentiality rules (42 CFR part 2). The federal rules prohibit you from making any further disclosure of this information unless further disclosure is expressly permitted by the written consent of the person to whom it pertains or as otherwise permitted by 42 CFR part 2. A general authorization for the release of medical or other information is NOT sufficient for this purpose. The Federal rules restrict any use of the information to criminally investigate or prosecute any alcohol or drug abuse patient.The records that you are about to access may contain highly sensitive health information, the redisclosure of which is protected by Article 27-F of the [place] State Public Health law. If you continue you may have access to information: Regarding HIV / AIDS; Provided by facilities licensed or operated by the [facility] Office of Mental Health; or Provided by the [facility] Office for People With Developmental Disabilities. If such information is present, then the following [facility] mandated warning applies: This information has been disclosed to you from confidential records which are protected by state law. State law prohibits you from making any further disclosure of this information without the specific written consent of the person to whom it pertains, or as otherwise permitted by law. Any unauthorized further disclosure in violation of state law may result in a fine or care home sentence or both. A general authorization for the release of medical or other information is NOT sufficient authorization for further disc losure. Family History Family Member Name Family Member Gender Family Member Status Date o f Status Description Data Source(s) Unknown Female Problem MEDENT ([facility]) Unknown Female Problem MEDENT ([facility]) Unknown Unknown Problem MEDENT ([facility] ) Unknown Female Problem [facility] ([facility] Unknown Female Problem MEDENT ([facility] ) Encounters Encounter Providers Location Date Indications Data Source(s ) Outpatient [address] [facility] [place] [id number] 09/13/2021 12:00:00 AM EDT eCW1 ([facility]) Outpatient Attender: Geoff Renteria MD Physical Therapy 07/19/2021 0 1:30:00 PM EDT MEDENT ([facility]) Outpatient Attender: Cary Cooley MD Main Office 05/05/2021 10:45:0 0 AM EDT MED[facility] ([facility] Unknown [address] [facility] [place] [address] 04/24/2021 12:00:00 AM EDT eCW1 ([facility]) Outpatient Attender: Geoff Renteria MD Physical Therapy 04/03/2021 0 9:30:00 AM EDT MEDENT ([facility]) Outpatient [address] [facility] [place] [address] 10/27/2020 12:00:00 AM EST eCW1 ([facility]) Outpatient Attender: Rosa Maria Barragan PA-C Main Office 10/06/2020 09:00:00 AM EST [facility] ([facility] Immunizations Vaccine Date Status Description Data Source(s) COVID-19 VACCINE Moderna 09/15/2021 12:00:00 AM EDT completed [facility] Vaccine Series Complete: YESThis Data wa s Submitted to [facility] Via [facility]. Moderna Sars-(Covid-19) vaccine, mRNA, LNP-S, PF, 100 mcg/ 0.5 mL 02/28/2021 12:00:00 AM EDT completed MEDENT ([facility] COVID-19 VACCINE Moderna 02/28/2021 12:00:00 AM EDT completed [facility]SIIS Vaccine Series Complete: YESThis Data wa s Submitted to [facility] Via [facility]. Moderna Sars-(Covid-19) vaccine, mRNA, LNP-S, PF, 100 mcg/ 0.5 mL 01/31/2021 12:00:00 AM EDT completed [facility] ([facility] COVID-19 VACCINE Moderna 01/31/2021 12:00:00 AM EDT completed [facility]SIIS Vaccine Series Complete: NOThis Data was Submitted to [facility] Via [facility]. New in 2012. IIV4 08/25/2020 10:04:00 AM EDT completed MEDENT ([facility] Medications Medication Brand Name Start Date Product Form Dose Route Admi nistrative Instructions Pharmacy Instructions Status Indications Reaction Description Data Source(s) Econazole Nitrate 10 MG/ML Topical Cream Econazole Nit rate 1 % Econazole Nitrate 1 % 09/13/2021 12:00:00 AM EDT 1.0 {application} active Econazole Nitrate 1 % eCW1 ([facility]) Griseofulvin 500 MG Oral Tablet Griseofulvin Microsize 500 MG Griseofulvin Microsize 500 MG 09/13/2021 12:00:00 AM EDT 1.0 {tablet_with_a_meal} active Griseofulvin Microsize 500 MG eC W1 ([facility]) Insurance Providers Payer name Policy type / Coverage type Policy ID Covered republican ID Covered republican's relationship to paulson Policy Paulson Plan Information Acc/Dol [place] [employer] () Workers Compensation [id number] Self [id number] Acc/[employer] [place] [employer] () Workers Compensation [id number] Self [id number] Acc/Dol [place] () Workers Compensation [id number] Self Acc/[place]ol [place] () Workers Compensation [id number] Self [id number] Acc/Dol [place] () Workers Compensation [id number] Self [id number] [facility] [employer] Of Labor Commercial [id number] [facility] FEDERAL EMPLOYEE PROGRAM [id number] SP [id number] [facility] [facility] FEDERAL [id number] SP [id number] BS Fed Plan Medigap Part B [id number] Self [id number] BS Fed Plan Commercial [id number] Self BS Fed Plan Medigap Part B [id number] Self [id number] BS Fed Plan Medigap Part B [id number] Self [id number] BS Fed Plan Medigap Part B [id number] Self [id number] ANSI-Commercial [id number] [facility] [id number] S [id number] ANSI-Commercial [id number] [facility] Health Maintenance [facility] ([facility]) [id number] Self [id number] ANSI-Commercial [id number] ANSI-Commercial [id number] ANSI-Commercial [id number] ANSI-Commercial [id number] ANSI-Commercial [id number] [facility] Health [facility] ([facility]) [id number] Self [id number] ANSI-Commercial [id number] BS Federal Health Maintenance Organization ([facility]) [id number] Self [id number] BS [facility] Health Maintenance Organization ([facility]) [id number] Self [id number] [facility] Health Maintenance Organization (O) [id number] Self BS [facility] Health Maintenance Organization ([facility]) [id number] S elf BC/BS (Federal) Commercial [id number] Self BC BS [place] FEDERAL B [id number] S [id number] [facility] [id number] S [id number] GEHA-ASA [id number] SP [id number] BC BS [place] FED[place]AL [id number] SP [id number] GEHA-ASA [id number] SP [id number] 2GEHA GEHA-ASA [id number] SP [id number] GEHA-ASA [id number] SP [id number] 2GEHA SELF PAY ONLY [employer] FEDERAL EMPLOYEE PROGRAM [id number] SP [id number] [facility] [id number] SP [id number] ANSI-Commercial [id number] FEDERAL EMPLOYEE PROGRAM [id number] SP [id number] MEDICARE [id number] SP [id number] A ANSI-Commercial [id number] ANSI-Commercial [id number] ANSI-Commercial [id number] Problems, Conditions, and Diagnoses Code Display Name Description Problem Type Effective Dates Data Source(s) 647855752 History of malignant neoplasm of prostat e History of malignant neoplasm of prostate Problem 05/05/2021 12:00:00 AM EDT MED[facility] ([facility] I10 Essential hypertension Essential hypertension Problem 05/05/2021 12:00:00 AM EDT MED[facility] ([facility] Surgeries/Procedures Procedure Description Date Indications Data Source(s) ARTHROCENTESIS ASPIR&/INJECTION MAJOR JT/BURSA 021 12:00:00 AM EDT MEDENT ([facility]) OFFICE OUTPATIENT VISIT 25 MINUTES 07/19/2021 12:00:00 AM EDT MEDENT ([facility]) OFFICE OUTPATIENT VISIT 25 MINUTES 05/05/2021 12:00:00 AM EDT MED[facility] ([facility] X-Ray Hip Unilateral With Pelvis 2-3 Views 04/03/2021 12:00:00 AM EDT MEDENT ([facility]) OFFICE OUTPATIENT VISIT 25 MINUTES 04/03/2021 12:00:00 AM EDT MEDENT ([facility]) Results ID Date Data Source [id number] 10/03/2020 11:25:00 AM EST MED[facility] ([facility] Name Value Range Interpretation Code Description Data Stefani rce(s) Supporting Document(s) Urate [Mass/volume] in Serum or Plasma 3.5 mg/dL 3.5-7.2 [facility] ([facility] ID Date Data Source [id number] 10/03/2020 11:25:00 AM EST MED[facility] ([facility] Name Value Range Interpretation Code Description Data Stefani rce(s) Supporting Document(s) Blood Urea Nitrogen 10 mg/dL 7-18 [facility] ([facility] Glucose, Fasting 87 mg/dL 70-100 [facility] ([facility] Sodium Level 139 meq/L 136-145 [facility] ([facility] Creatinine For GFR 0.88 mg/dL 0.70-1.30 [facility] ([facility] Glomerular Filtration Rate Laboratory test result MED[facility] ([facility] <content>Units are mL/min/1.73 m2</content>
<content></content>
<content>Chronic Kidney Disease Staging per NKF:</content>
<content></content>
<content>Stage I & II GFR >=60 Normal to Mildly Decreased</content>
<content>Stage III GFR 30- 59 Moderately Decreased</content>
<content>Stage IV GFR 15-29 Severely Decreased</content>
<content>Stage V GFR <15 Very Little GFR Left</content>
<content>ESRD GFR <15 on PROFESSOR OF ART HISTORY</content>
<content></content> Anion Gap 5 meq/L 8-16 [facility] ([facility] Carbon Dioxide Level 30 meq/L 21-32 [facility] ([facility] Chloride Level 104 meq/L 98-107 [facility] ([facility] Potassium Serum 4.4 meq/L 3.5-5.1 [facility] ([facility] Alt/SGPT 50 U/L 12-78 [facility] ([facility] Ast/Sgot 35 U/L 7-37 [facility] ([facility] Calcium Level 9.2 mg/dL 8.5-10.1 [facility] ([facility] Total Protein 6.9 GM/DL 6.4-8.2 [facility] ([facility] Bilirubin,Total 0.9 mg/dL 0.2-1.0 [facility] ([facility] Alkaline Phosphatase 67 U/L 45-117 [facility] ([facility] Albumin 3.8 GM/DL 3.2-5.2 [facility] ([facility] Albumin/Globulin Ratio 1.2 [facility] ([facility] ID Date Data Source [id number] 10/03/2020 11:25:00 AM EST MEDENT ([facility] Name Value Range Interpretation Code Description Data Stefani rce(s) Supporting Document(s) Triglycerides Level 198 mg/dL MED[facility] ([facility] Cholesterol Level 167 mg/dL [facility] ([facility] LDL Cholesterol 76 mg/dL [facility] ([facility] HDL Cholesterol 51 mg/dL [facility] ([facility] Non-HDL-C 116 mg/dL [facility] ([facility] Cholesterol Risk Ratio 3.274 [facility] ([facility] Procedure Social History Code Duration Value Status Description Data Source(s ) Smoking 09/13/2021 12:00:00 AM EDT Former Smoker completed Former Smoker eCW1 ([facility]) Smoking 05/05/2021 12:00:00 AM EDT - 11/18/1999 12:00:00 AM EST Patient is a former smoker completed Patient is a former smoker MED[facility] ([facility] Smoking 10/27/2020 12:00:00 AM EST Former Smoker completed Former Smoker eCW1 ([facility]) Smoking 10/27/2020 12:00:00 AM EST Former Smoker completed Former Smoker eCW1 ([facility]) Vital Signs ID Date Data Source UNK Name Value Range Interpretation Code Description Data Source(s) Body weight 245.6 [lb_av] 245.6 [lb_av] W1 ([facility]) Body weight 111.4 kg 111.4 kg [facility] ([facility]) Body height 73 [in_i] 73 [in_i] W1 ([facility]) Body mass index (BMI) [Ratio] 32.40 kg/m2 32.40 kg/m2 W1 ([facility]) Systolic blood pressure 140 mm[Hg] 140 mm[Hg] e CW1 ([facility]) Diastolic blood pressure 80 mm[Hg] 80 mm[Hg] eCW1 ([facility]) Systolic blood pressure 139 mm[Hg] 139 mm[Hg] M EDENT ([facility] Diastolic blood pressure 83 mm[Hg] 83 mm[Hg] MED[facility] ([facility] Heart rate 58 /min 58 /min MED[facility] ([facility] Body temperature 97.0 [degF] 97.0 [degF] MED[facility] ([facility] Respiratory rate 17 /min 17 /min [facility] ( [facility] Body height 73 [in_i] 73 [in_i] MEDENT ([facility] 6'1" Body weight 256.38 [lb_av] 256.38 [lb_av] MEDEN T ([facility] Oxygen saturation in Arterial blood by Pulse oximetry 98 % 98 % MEDENT ([facility] [place] body weight 184 [lb_av] 184 [lb_av] MEDEN T ([facility] Body mass index (BMI) [Ratio] 33.8 kg/m2 33.8 k g/m2 MED[facility] ([facility] Body temperature 97.3 [degF] 97.3 [degF] MEDENT ([facility]) Body height 74.5 [in_i] 74.5 [in_i] MEDENT ([facility]) 6'2.50" Body weight 254.00 [lb_av] 254.00 [lb_av] MEDEN T ([facility]) Body mass index (BMI) [Ratio] 32.2 kg/m2 32.2 k g/m2 MEDENT ([facility] Body weight 253 [lb_av] 253 [lb_av] eCW1 ([facility]) Body mass index (BMI) [Ratio] 33.38 kg/m2 33.38 kg/m2 W1 ([facility]) Body height 73 [in_i] 73 [in_i] eCW1 ([facility]) Heart rate 60 /min 60 /min eCW1 ([facility]) Respiratory rate 18 /min 18 /min eCW1 ([facility]) Body temperature 95.5 [degF] 95.5 [degF] eCW1 ( [facility]) Systolic blood pressure 140 mm[Hg] 140 mm[Hg] e CW1 ([facility]) Diastolic blood pressure 84 mm[Hg] 84 mm[Hg] eCW1 ([facility]) Body height 73 [in_i] 73 [in_i] MEDENT ([facility] 6'1" Respiratory rate 16 /min 16 /min MED[facility] ( [facility] Oxygen saturation in Arterial blood by Pulse oximetry 98 % 98 % MEDENT ([facility] [place] body weight 184 [lb_av] 184 [lb_av] MEDEN T ([facility] Body mass index (BMI) [Ratio] 33.3 kg/m2 33.3 k g/m2 MED[facility] ([facility] Body temperature 96.9 [degF] 96.9 [degF] MED[facility] ([facility] Body weight 252.38 [lb_av] 252.38 [lb_av] MEDEN T ([facility] Heart rate 61 /min 61 /min [facility] ([facility] Systolic blood pressure 159 mm[Hg] 159 mm[Hg] M EDENT ([facility] Diastolic blood pressure 90 mm[Hg] 90 mm[Hg] MEDENT ([facility] Systolic blood pressure 134 mm[Hg] 134 mm[Hg] M MEENAKSHIENT ([facility] Diastolic blood pressure 79 mm[Hg] 79 mm[Hg] MEDENT ([facility] Body temperature 97.3 [degF] 97.3 [degF] MEDENT ([facility] Patient Treatment Plan of Care Planned Activity Planned Date Details Description Data Source (s) Griseofulvin 500 MG Oral Tablet 09/13/2021 12:00:00 AM EDT eCW1 ([facility]) Econazole Nitrate 10 MG/ML Topical Cream 09/13/2021 12:00:00 AM EDT eCW1 ([facility])
[2021-09-18] MEDS ORDERED: METO200T28 (08:28)
[2021-09-18] MEDS ORDERED: CO Q100C2 PO (08:28)
--- NOTE | 2021-09-18 09:15 | REP ---
INDICATION: calf pain. COMPARISON: 10/01/2009 TECHNIQUE: Multiple ultrasonographic images of the deep venous structures of the left thigh were obtained from the level of the common femoral vein to the popliteal vein in the longitudinal and transverse scan planes along with Doppler interrogation and color flow Doppler imaging. The right common femoral vein is also imaged. FINDINGS: Deep venous ultrasound shows the common femoral vein through proximal popliteal vein fully compressible without thrombus. There is respiratory variation and augmented flow in these areas. Over the mid to distal popliteal vein and tibioperoneal trunk show echogenic thrombus extending into the calf. This does not compress or show color flow. The right common femoral vein for comparison was patent. IMPRESSION: 1. Evidence for acute deep vein thrombosis involving the left popliteal vein and tibioperoneal trunk on the left side with loss of compression and color flow into the proximal calf. From the proximal popliteal vein through the common femoral vein there was no evidence of thrombus elsewhere in the thigh. Accredited by the [employer] in Vascular Peripheral Ultrasound. <Electronically signed by Stephen Loco > 09/18/21 0911
--- OUTSIDE RECORDS SUMMARY | 2021-09-18 10:12 | CCD ---
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 Rosa Maria PA-C Unavailable Unavailabl e Petrancosta, [facility] Rosa Maria PA-C Unavailable Unavailabl e Petrancosta, [facility] Rosa Maria PA-C Unavailable Unavailabl e Petrancosta, [facility] Maria PA-C Unavailable Unavailabl e Petrancosta, [facility] Maria PA-C Unavailable Unavailabl e Petrancosta, [facility] Maria PA-C Unavailable Unavailabl e Petrancosta, [facility] Maria PA-C Unavailable Unavailabl e Petrancosta, [facility] Maria PA-C Unavailable Unavailabl e Petrancosta, [facility] Maria PA-C Unavailable Unavailabl e Petrancosta, [facility] Maria PA-C Unavailable Unavailabl e Petrancosta, [facility] Maria PA-C Unavailable Unavailabl e Petrancosta, [facility] Maria PA-C Unavailable Unavailabl e Petrancosta, [facility] Rosa Maria PA-C Unavailable Unavailabl e Petrancosta, [facility] Rosa Maria PA-C Unavailable Unavailabl e Petrancosta, [facility] Rosa Maria PA-C Unavailable Unavailabl e Petrancosta, [facility] Rosa Maria PA-C Unavailable Unavailabl e Petrancosta, [facility] Rosa Maria PA-C Unavailable Unavailabl e Petrancosta, [facility] Maria PA-C Unavailable Unavailabl e Petrancosta, [facility] Maria PA-C Unavailable Unavailabl e Petrancosta, [facility] Rosa Maria PA-C Unavailable Unavailabl e Petrancosta, [facility] Maria PA-C Unavailable Unavailabl e Petrancosta, [facility] Rosa Maria PA-C Unavailable Unavailabl e Petrancosta, [facility] Maria PA-C Unavailable Unavailabl e Petrancosta, [facility] Rosa Maria PA-C Unavailable Unavailabl e Petrancosta, [facility] Maria PA-C Unavailable Unavailabl e Yasir, [...] A Cary MD Unavailable Unavailable Yasir, A Acry MD Unavailable Unavailable Yasir, A Cary MD [...] by facilities licensed or operated by the [facility] Office of Mental Health; or Provided by the [facility] Office for People With Developmental Disabilities. If such information is present, then the following [facility] mandated warning applies: This information has been [...] law may result in a fine or long term sentence or both. A general authorization for the release of medical or other information is NOT sufficient authorization for further disc losure. Family History Family Member Name Family Member Gender Family Member Status Date o f Status Description Data Source(s) Unknown Female Problem MEDENT ([facility]) Unknown Female Problem MEDENT ([facility]) Unknown Unknown Problem MEDENT ([facility] ) Unknown Female Problem MEDENT ([facility] Unknown Female Problem MEDENT ([facility] Goddard MD ) Encounters Encounter Providers Location Date Indications Data Source(s ) Outpatient [address] [facility] [place] [id number] 09/13/2021 12:00:00 AM EDT eCW1 ([facility]) Outpatient Attender: Geoff Renteria MD Physical Therapy 07/19/2021 0 1:30:00 PM EDT MEDENT ([facility]) Outpatient Attender: Cary Cooley MD Main Office 05/05/2021 10:45:0 0 AM EDT MEDENT ([facility] Unknown [address] [facility] [place] [id number] 04/24/2021 12:00:00 AM EDT eCW1 ([facility]) Outpatient Attender: Geoff Renteria MD Physical Therapy 04/03/2021 0 9:30:00 AM EDT MEDENT ([facility]) Outpatient [address] [facility] [place] [id number] 10/27/2020 12:00:00 AM EST eCW1 ([facility]) Outpatient Attender: Rosa Maria Barragan PA-C Main Office 10/06/2020 09:00:00 AM EST MEDENT ([facility] Immunizations Vaccine Date Status Description Data Source(s) COVID-19 VACCINE Moderna 09/15/2021 12:00:00 AM EDT completed [facility]SIIS Vaccine Series Complete: YESThis Data wa s Submitted to [facility] Via [employer]. Moderna Sars-(Covid-19) vaccine, mRNA, LNP-S, PF, 100 mcg/ 0.5 mL 02/28/2021 12:00:00 AM EDT completed MEDENT ([facility] COVID-19 VACCINE Moderna 02/28/2021 12:00:00 AM EDT completed [facility]IS Vaccine Series Complete: YESThis Data wa s Submitted to [facility] [employer]. Moderna Sars-(Covid-19) vaccine, mRNA, LNP-S, PF, 100 mcg/ 0.5 mL 01/31/2021 12:00:00 AM EDT completed MED[facility] ([facility] COVID-19 VACCINE Moderna 01/31/2021 12:00:00 AM EDT completed [facility]SIIS Vaccine Series Complete: NOThis Data was Submitted to [facility] Via [employer]. New in 2012. IIV4 08/25/2020 10:04:00 AM EDT completed MEDENT ([facility] Medications Medication Brand Name Start Date Product Form Dose Route Admi nistrative Instructions Pharmacy Instructions Status Indications Reaction Description Data Source(s) Econazole Nitrate 10 MG/ML Topical Cream Econazole Nit rate 1 % Econazole Nitrate 1 % 09/13/2021 12:00:00 AM EDT 1.0 {application} active Econazole Nitrate 1 % eCW1 ([facility]) Griseofulvin 500 MG Oral Tablet Griseofulvin Microsize 500 MG Griseofulvin Microsize 500 MG 09/13/2021 12:00:00 AM EDT 1.0 {tablet_with_a_meal} active Griseofulvin Microsize 500 MG eC W1 ([facility]) Insurance Providers Payer name Policy type / Coverage type Policy ID Covered green party ID Covered green party's relationship to paulson Policy [place] Plan Information Acc/Dol ([place] [employer] () [place] Compensation [id number] Self [id number] [employer] [place] [employer] () Workers Compensation [id number] Self [id number] Acc/[employer]ol [place] [employer] () Workers Compensation [id number] Self Acc/[place]ol [place] [employer] () Workers Compensation [id number] Self [id number] Acc/Dol ([place] [employer] () Workers Compensation [id number] Self [id number] [facility] [employer] Commercial [id number] Self [facility] FED[employer]AL EMPLOYEE PROGRAM [id number] SP [id number] EXCELLUS [facility] FEDERAL [id number] SP [id number] BS Fed Plan Medigap Part B [id number] Self [id number] BS Fed Plan Commercial [id number] Self BS Fed Plan Medigap Part B [id number] Self [id number] BS Fed Plan Medigap Part B [id number] Self [id number] BS Fed Plan Medigap Part B [id number] Self [id number] ANSI-Commercial [id number] ANSI-Commercial [id number] [facility] [id number] S [id number] ANSI-Commercial [id number] [facility] ([facility]) [id number] Self [id number] ANSI-Commercial [id number] ANSI-Commercial [id number] ANSI-Commercial [id number] ANSI-Commercial [id number] ANSI-Commercial [id number] [facility] ([facility]) [id number] Self [id number] ANSI-Commercial [id number] [facility] Health Maintenance Organization (O) [id number] Self [id number] BS [facility] Health Maintenance Organization ([facility]) [id number] Self [id number] [facility] Health Maintenance Organization (HMO) [id number] Self BS [facility] Health Maintenance Organization ([facility]) [id number] S elf BC/BS ([facility]) Commercial [id number] Self BC BS [place] FED[employer]AL B [id number] S [id number] [facility] [id number] S 1 [id number] MEDICARE [id number] SP [id number] BC BS [place] FEDERAL [id number] SP [id number] GEHA-ASA [id number] SP [id number] 2GEHA GEHA-ASA [id number] SP [id number] 2GEHA GEHA-ASA [id number] SP [id number] GEHA-ASA [id number] SP [id number] 2GEHA SELF PAY ONLY [employer] FEDERAL EMPLOYEE PROGRAM [id number] SP [id number] [facility] [id number] SP [id number] ANSI-Commercial [id number] [facility] FEDERAL EMPLOYEE PROGRAM [id number] SP [id number] MEDICARE [id number] SP [id number] A ANSI-Commercial [id number] ANSI-Commercial [id number] Problems, Conditions, and Diagnoses Code Display Name Description Problem Type Effective Dates Data Source(s) 658503811 History of malignant neoplasm of prostat e History of malignant neoplasm of prostate Problem 05/05/2021 12:00:00 AM EDT MEDENT ([facility] I10 Essential hypertension Essential hypertension Problem 05/05/2021 12:00:00 AM EDT MEDENT ([facility] Surgeries/Procedures Procedure Description Date Indications Data Source(s) ARTHROCENTESIS ASPIR&/INJECTION MAJOR JT/BURSA 021 12:00:00 AM EDT MEDENT ([facility]) OFFICE OUTPATIENT VISIT 25 MINUTES 07/19/2021 12:00:00 AM EDT MEDENT ([facility]) OFFICE OUTPATIENT VISIT 25 MINUTES 05/05/2021 12:00:00 AM EDT MEDENT ([facility] X-Ray Hip Unilateral With Pelvis 2-3 Views 04/03/2021 12:00:00 AM EDT MEDENT ([facility]) OFFICE OUTPATIENT VISIT 25 MINUTES 04/03/2021 12:00:00 AM EDT MEDENT ([facility]) Results ID Date Data Source [id number] 10/03/2020 11:25:00 AM EST MEDENT ([facility] Name Value Range Interpretation Code Description Data Stefani rce(s) Supporting Document(s) Urate [Mass/volume] in Serum or Plasma 3.5 mg/dL 3.5-7.2 MEDENT ([facility] ID Date Data Source [id number] 10/03/2020 11:25:00 AM EST MEDENT ([facility] [...] Little GFR Left</content>
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
<content></content> Anion Gap 5 meq/L 8-16 MED[facility] ([facility] Carbon Dioxide Level 30 meq/L 21-32 MEDENT ([facility] Chloride Level 104 meq/L 98-107 MED[facility] ([facility] Potassium Serum 4.4 meq/L [...] [facility] ID Date Data Source [id number] 10/03/2020 11:25:00 AM EST MEDENT ([facility] [...] EDT Former Smoker completed Former Smoker eCW1 ([facility]) Smoking 05/05/2021 12:00:00 AM EDT - 11/18/1999 12:00:00 AM EST Patient is a former smoker completed Patient is a former smoker MEDENT ([facility] Smoking 10/27/2020 12:00:00 AM EST Former Smoker completed Former Smoker eCW1 ([facility]) Smoking 10/27/2020 12:00:00 AM EST Former Smoker completed Former Smoker eCW1 ([facility]) Vital Signs ID Date Data Source UNK Name Value Range Interpretation Code Description Data Source(s) Body weight 245.6 [lb_av] 245.6 [lb_av] eCW1 ([facility]) Body weight 111.4 kg 111.4 kg W1 ([facility]) Body height 73 [in_i] 73 [in_i] W1 ([facility]) Body mass index (BMI) [Ratio] 32.40 kg/m2 32.40 kg/m2 [facility] ([facility]) Systolic blood pressure 140 mm[Hg] 140 mm[Hg] e CW1 ([facility]) Diastolic blood pressure 80 mm[Hg] 80 mm[Hg] eCW1 ([facility]) Body weight 256.38 [lb_av] 256.38 [lb_av] MEDEN T ([facility] Systolic blood pressure 139 mm[Hg] 139 mm[Hg] M EDENT ([facility] Oxygen saturation in Arterial blood by Pulse oximetry 98 % 98 % MEDENT ([facility] Diastolic blood pressure 83 mm[Hg] 83 mm[Hg] MEDENT ([facility] Heart rate 58 /min 58 /min MEDENT ([facility] Body temperature 97.0 [degF] 97.0 [degF] MEDENT ([facility] Respiratory rate 17 /min 17 /min MEDENT ( [facility] [place] body weight 184 [lb_av] 184 [lb_av] MEDEN T ([facility] Body height 73 [in_i] 73 [in_i] MEDENT ([facility] 6'1" Body mass index (BMI) [Ratio] 33.8 kg/m2 33.8 k g/m2 MEDENT ([facility] Body temperature 97.3 [degF] 97.3 [degF] MEDENT ([facility] Body height 74.5 [in_i] 74.5 [in_i] MEDENT ([facility]) 6'2.50" Body weight 254.00 [lb_av] 254.00 [lb_av] MEDEN T ([facility] Body mass index (BMI) [Ratio] 32.2 kg/m2 32.2 k g/m2 MEDENT ([facility] Body weight 253 [lb_av] 253 [lb_av] eCW1 ([facility]) Body mass index (BMI) [Ratio] 33.38 kg/m2 33.38 kg/m2 W1 ([facility]) Body height 73 [in_i] 73 [in_i] eCW1 ([facility]) Respiratory rate 18 /min 18 /min eCW1 ([facility]) Heart rate 60 /min 60 /min eCW1 ([facility]) Diastolic blood pressure 84 mm[Hg] 84 mm[Hg] eCW1 ([facility]) Body temperature 95.5 [degF] 95.5 [degF] eCW1 ( [facility]) Systolic blood pressure 140 mm[Hg] 140 mm[Hg] e CW1 ([facility]) Body temperature 96.9 [degF] 96.9 [degF] MEDENT ([facility] Body height 73 [in_i] 73 [in_i] MEDENT ([facility] 6'1" Respiratory rate 16 /min 16 /min MEDENT ( [facility] Oxygen saturation in Arterial blood by Pulse oximetry 98 % 98 % MEDENT ([facility] Body weight 252.38 [lb_av] 252.38 [lb_av] MEDEN T ([facility] Body mass index (BMI) [Ratio] 33.3 kg/m2 33.3 k g/m2 MEDENT ([facility] [place] body weight 184 [lb_av] 184 [lb_av] MEDEN T ([facility] Heart rate 61 /min 61 /min MEDENT ([facility] Systolic blood pressure 159 mm[Hg] 159 mm[Hg] M EDENT ([facility] Diastolic blood pressure 90 mm[Hg] 90 mm[Hg] MEDENT ([facility] Systolic blood pressure 134 mm[Hg] 134 mm[Hg] EDENT ([facility] Diastolic blood pressure 79 mm[Hg] 79 mm[Hg] MEDENT ([facility] Body temperature 97.3 [degF] 97.3 [degF] MEDENT ([facility] Patient Treatment Plan of Care Planned Activity Planned Date Details Description Data Source (s) Griseofulvin 500 MG Oral Tablet 09/13/2021 12:00:00 AM EDT eCW1 ([facility]) Econazole Nitrate 10 MG/ML Topical Cream 09/13/2021 12:00:00 AM EDT eCW1 ([facility])
[2021-09-18 10:34] LABS: BASO % 0.4 % (0.0-1.0); EOS # 0.2 10^3/uL (0.0-0.5); EOS % 2.8 % (0.0-3.0); HEMATOCRIT 47.2 % (42.0-52.0); HEMOGLOBIN 15.8 g/dl (13.5-17.5); LYMPH # 1.1 10^3/uL (1.5-5.0); LYMPH % 14.5 % (24.0-44.0); MEAN CORPUSCULAR HEMOGLOBIN 29.7 pg (27.0-33.0); MEAN CORPUSCULAR HGB CONC 33.5 g/dl (32.0-36.5); MEAN CORPUSCULAR VOLUME 88.7 fl (80.0-96.0); MONO # 0.6 10^3/uL (0.0-0.8); MONO % 8.4 % (2.0-8.0); NEUTROPHILS # 5.5 10^3/uL (1.5-8.5); NEUTROPHILS % 73.2 % (36.0-66.0); PLATELET COUNT, AUTOMATED 169 10^3/uL (150-450); RED BLOOD COUNT 5.32 10^6/uL (4.30-6.10); WHITE BLOOD COUNT 7.5 10^3/uL (4.0-10.0)
[2021-09-18 10:57] LABS: BLOOD UREA NITROGEN 7 MG/DL (7-18); CALCIUM LEVEL 9.3 MG/DL (8.5-10.1); CARBON DIOXIDE LEVEL 28 MEQ/L (21-32); CHLORIDE LEVEL 107 MEQ/L (98-107); CREATININE FOR GFR 0.75 MG/DL (0.70-1.30); GLOMERULAR FILTRATION RATE > 60.0 (>56); GLUCOSE, FASTING 107 MG/DL (70-100); POTASSIUM SERUM 4.3 MEQ/L (3.5-5.1); SODIUM LEVEL 138 MEQ/L (136-145)
[2021-09-18] MEDS ORDERED: XARE15TA PO (11:09)
[2021-09-18 11:18] VITALS: BP 153/85
--- NOTE | 2021-09-19 07:58 | ECGEPIP ---
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
== END 2021-09-18 11:49 | disposition home or self-care (01) ==
LOC: M ED 08:17
DX: I82.432 Acute embolism and thrombosis of left popliteal vein (principal); I82.442 Acute embolism and thrombosis of left tibial vein; I49.3 Ventricular premature depolarization; I48.91 Unspecified atrial fibrillation; I10 Essential (primary) hypertension; E78.5 Hyperlipidemia, unspecified; Z86.718 Personal history of other venous thrombosis and embolism; M19.90 Unspecified osteoarthritis, unspecified site; Z85.46 Personal history of malignant neoplasm of prostate; K76.0 Fatty (change of) liver, not elsewhere classified; Z87.891 Personal history of nicotine dependence; F12.10 Cannabis abuse, uncomplicated; F10.10 Alcohol abuse, uncomplicated; Z79.899 Other long term (current) drug therapy

== ENCOUNTER 2021-10-19 07:07 | Emergency (ER) | payer MEDICARE, OTHER ==
[~2021-10-19] VITALS: Ht 188 cm; Wt 111.2 kg
[~2021-10-19 07:07] MED LIST changes: +CO Q100C2 PO; +METO200T28; +XARE15TA PO
[2021-10-19] MEDS ORDERED: GRIS1TAB (07:16)
[2021-10-19] MEDS ORDERED: CICL8SOL3 (07:16)
[2021-10-19] MEDS ORDERED: ECON1CRE8 (07:16)
--- OUTSIDE RECORDS SUMMARY | 2021-10-19 07:18 | CCD ---
Author Author [facility] Organization [facility] Address Unknown Phone Unavailable Care Team Providers Care Straddle Carrier Operator Name Role Phone Fish, B Geoff TERAN [...] Fish, B Geoff TERAN Unavailable Unavailable Petrancosta, Dunklin Rosa Maria PA-C Unavailable Unavailabl e Petrancosta, Dunklin Rosa Maria PA-C Unavailable Unavailabl e Petrancosta, Dunklin Rosa Maria PA-C Unavailable Unavailabl e Petrancosta, Dunklin Rosa Maria PA-C Unavailable Unavailabl e Petrancosta, Dunklin Rosa Maria PA-C Unavailable Unavailabl e Petrancosta, Dunklin Rosa Maria PA-C Unavailable Unavailabl e Petrancosta, Dunklin Rosa Maria PA-C Unavailable Unavailabl e Petrancosta, Dunklin Rosa Maria PA-C Unavailable Unavailabl e Petrancosta, Dunklin Rosa Maria PA-C Unavailable Unavailabl e Petrancosta, Dunklin Rosa Maria PA-C Unavailable Unavailabl e Petrancosta, Dunklin Rosa Maria PA-C Unavailable Unavailabl e Petrancosta, Dunklin Rosa Maria PA-C Unavailable Unavailabl e Petrancosta, Dunklin Rosa Maria PA-C Unavailable Unavailabl e Petrancosta, Dunklin Rosa Maria PA-C Unavailable Unavailabl e Petrancosta, Dunklin Rosa Maria PA-C Unavailable Unavailabl e Petrancosta, Dunklin Rosa Maria PA-C Unavailable Unavailabl e Petrancosta, Dunklin Rosa Maria PA-C Unavailable Unavailabl e Petrancosta, Dunklin Rosa Maria PA-C Unavailable Unavailabl e Petrancosta, Dunklin Rosa Maria PA-C Unavailable Unavailabl e Petrancosta, Dunklin Rosa Maria PA-C Unavailable Unavailabl e Petrancosta, Dunklin Rosa Maria PA-C Unavailable Unavailabl e Petrancosta, Dunklin Rosa Maria PA-C Unavailable Unavailabl e Petrancosta, Dunklin Rosa Maria PA-C Unavailable Unavailabl e Petrancosta, Dunklin Rosa Maria PA-C Unavailable Unavailabl e Petrancosta, Dunklin Rosa Maria PA-C Unavailable Unavailabl e Yasir, [...] Yasir, A Cary TERAN Unavailable Unavailable Aysir, A Cary TERAN Unavailable Unavailable Yasir, Gina [...] is protected by Article 27-F of the [place] State Public Health law. If you continue you may have access to information: Regarding HIV / AIDS; Provided by facilities licensed or operated by the [facility] Office of Mental Health; or Provided by the [facility] Office for People With Developmental Disabilities. If such information is present, then the following [facility] mandated warning applies: This information has been [...] law may result in a fine or long-term sentence or both. A general authorization for the release of medical or other information is NOT sufficient authorization for further disc losure. Family History Family Member Name Family Member Gender Family Member Status Date o f Status Description Data Source(s) Unknown Female Problem MEDENT ([facility] ) Unknown Female Problem MEDENT ([facility] ) Unknown Unknown Problem MEDENT ([facility] ) Unknown Female Problem [facility] ([facility] Unknown Female Problem MEDENT ([facility] Goddard [facility] ) Encounters Encounter Providers Location Date Indications Data Source(s ) Unknown [address] [facility] [address] 10/06/2021 12:00:00 AM EST eCW1 ([facility]) Outpatient Attender: Cary Cooley MD Main Office 10/03/2021 08:00:0 0 AM EST MEDENT ([facility] Outpatient [address] [facility] [id number] 09/29/2021 12:00:00 AM EST eCW1 ([facility]) Unknown [address] [facility] [place] [address] 09/29/2021 12:00:00 AM EST eCW1 ([facility]) Outpatient [address] [facility] [place] [address] 09/13/2021 12:00:00 AM EDT eCW1 ([facility]) Outpatient Attender: Geoff Renteria MD Physical Therapy 07/19/2021 0 1:30:00 PM EDT MEDENT ([facility]) Outpatient Attender: Cary Cooley MD Main Office 05/05/2021 10:45:0 0 AM EDT MED[facility] ([facility] Unknown [address] [facility] [place] [address] 04/24/2021 12:00:00 AM EDT eCW1 ([facility]) Outpatient Attender: Geoff Renteria MD Physical Therapy 04/03/2021 0 9:30:00 AM EDT MEDENT ([facility]) Outpatient [address] [facility] [place] [address] 10/27/2020 12:00:00 AM EST eCW1 ([facility]) Outpatient Attender: Rosa Maria Barragan PA-C Main Office 10/06/2020 09:00:00 AM EST MED[facility] ([facility] Immunizations Vaccine Date Status Description Data Source(s) COVID-19 VACCINE Moderna 09/15/2021 12:00:00 AM EDT completed NYSIIS Vaccine Series Complete: YESThis Data wa s Submitted to [facility] Via [employer]. Moderna Sars-(Covid-19) vaccine, mRNA, LNP-S, PF, 100 mcg/ 0.5 mL 02/28/2021 12:00:00 AM EDT completed MED[facility] ([facility] COVID-19 VACCINE Moderna 02/28/2021 12:00:00 AM EDT completed NYSIIS Vaccine Series Complete: YESThis Data wa s Submitted to [facility] [employer]. Moderna Sars-(Covid-19) vaccine, mRNA, LNP-S, PF, 100 mcg/ 0.5 mL 01/31/2021 12:00:00 AM EDT completed [facility] ([facility] COVID-19 VACCINE Moderna 01/31/2021 12:00:00 AM EDT completed NYSIIS Vaccine Series Complete: NOThis Data was Submitted to [facility] Via [employer]. New in 2012. IIV4 08/25/2020 10:04:00 AM EDT completed MED[facility] ([facility] Medications Medication Brand Name Start Date Product Form Dose Route Admi nistrative Instructions Pharmacy Instructions Status Indications Reaction Description Data Source(s) rivaroxaban 20 MG Oral Tablet [Xarelto] Xarelto 10/03/2021 12:00:0 0 AM EST ORAL active MEDENT ([facility] ciclopirox 0.0077 MG/MG Topical Gel Ciclopirox 0.77 % Ciclop irox 0.77 % 09/29/2021 12:00:00 AM EST 1.0 {application} active eCW1 ([facility]) ciclopirox 0.0077 MG/MG Topical Gel Ciclopirox 0.77 % Ciclop irox 0.77 % 09/29/2021 12:00:00 AM EST 1.0 {application} act ciera Ciclopirox 0.77 % eCW1 ([facility]) ciclopirox 0.0077 MG/MG Topical Gel Ciclopirox 0.77 % Ciclop irox 0.77 % 09/29/2021 12:00:00 AM EST 1.0 {application} act ciera Ciclopirox 0.77 % eCW1 ([facility]) Econazole Nitrate 10 MG/ML Topical Cream Econazole Nit rate 1 % Econazole Nitrate 1 % 09/13/2021 12:00:00 AM EDT 1.0 {application} active Econazole Nitrate 1 % eCW1 ([facility]) Griseofulvin 500 MG Oral Tablet Griseofulvin Microsize 500 MG Griseofulvin Microsize 500 MG 09/13/2021 12:00:00 AM EDT 1.0 {tablet_with_a_meal} active Griseofulvin Microsize 500 MG eC W1 ([facility]) Econazole Nitrate 10 MG/ML Topical Cream Econazole Nit rate 1 % Econazole Nitrate 1 % 09/13/2021 12:00:00 AM EDT 1.0 {application} active Econazole Nitrate 1 % eCW1 ([facility]) Econazole Nitrate 10 MG/ML Topical Cream Econazole Nit rate 1 % Econazole Nitrate 1 % 09/13/2021 12:00:00 AM EDT 1.0 {application} active Econazole Nitrate 1 % eCW1 ([facility]) Griseofulvin 500 MG Oral Tablet Griseofulvin Microsize 500 MG Griseofulvin Microsize 500 MG 09/13/2021 12:00:00 AM EDT 1.0 {tablet_with_a_meal} active eCW1 ([facility]) Griseofulvin 500 MG Oral Tablet Griseofulvin Microsize 500 MG Griseofulvin Microsize 500 MG 09/13/2021 12:00:00 AM EDT 1.0 {tablet_with_a_meal} active Griseofulvin Microsize 500 MG eC W1 ([facility]) Econazole Nitrate 10 MG/ML Topical Cream Econazole Nit rate 1 % Econazole Nitrate 1 % 09/13/2021 12:00:00 AM EDT 1.0 {application} activ e eCW1 ([facility]) Griseofulvin 500 MG Oral Tablet Griseofulvin Microsize 500 MG Griseofulvin Microsize 500 MG 09/13/2021 12:00:00 AM EDT 1.0 {tablet_with_a_meal} active Griseofulvin Microsize 500 MG eC W1 ([facility]) Insurance Providers Payer name Policy type / Coverage type Policy ID Covered green party ID Covered green party's relationship to paulson Policy Paulson Plan Information Acc/Dol ([facility] [employer] [employer]) () Workers Compensation [id number] Self [id number] Acc/[place]ol ([place] () Workers Compensation [id number] Self [id number] Acc/Dol ([place] () Workers Compensation [id number] Self Acc/Dol ([place]) () Workers Compensation [id number] Self [id number] Acc/Dol ([place]) (WC) Workers Compensation [id number] Self [id number] [place] [employer] Commercial [id number] Self [facility] EMPLOYEE PROGRAM [id number] SP [id number] [facility] [id number] SP [id number] BS Fed Plan Medigap Part B [id number] Self [id number] BS Fed Plan Commercial [id number] Self BS Fed Plan Medigap Part B [id number] Self [id number] BS Fed Plan Medigap Part B [id number] Self [id number] BS Fed Plan Medigap Part B [id number] Self [id number] ANSI-Commercial [id number] ANSI-Commercial [id number] [facility] [place] [employer] B [id number] S [id number] ANSI-Commercial [id number] [facility] Health Maintenance Organization (HMO) [id number] Self [id number] ANSI-Commercial [id number] ANSI-Commercial [id number] ANSI-Commercial [id number] ANSI-Commercial [id number] ANSI-Commercial [id number] [facility] Health Maintenance Organization (O) [id number] Self [id number] ANSI-Commercial [id number] [facility] Health Maintenance Organization (O) [id number] Self [id number] [facility] Health Maintenance Organization (O) [id number] Self [id number] [facility] Health Maintenance Organization (O) [id number] Self [facility] Health Maintenance Organization (O) [id number] S elf BC/BS (Federal) Commercial [id number] Self BC BS [place] [employer] B [id number] S [id number] [facility] [id number] S 1 [id number] MEDICARE [id number] SP [id number] [facility] [place] [employer] [id number] SP [id number] GEHA-ASA [id number] SP [id number] 2GEHA GEHA-ASA [id number] SP [id number] GEHA-ASA [id number] SP [id number] 2GEHA GEHA-ASA [id number] SP [id number] 2GEHA SELF PAY ONLY [facility] FEDERAL EMPLOYEE PROGRAM [id number] SP [id number] [facility] [id number] SP [id number] ANSI-Commercial [id number] [facility] FEDERAL EMPLOYEE PROGRAM [id number] SP [id number] MEDICARE [id number] SP [id number] A ANSI-Commercial [id number] ANSI-Commercial [id number] Problems, Conditions, and Diagnoses Code Display Name Description Problem Type Effective Dates Data Source(s) B35.4 62205715 Tinea corporis Problem 09/15/2021 12:00:00 A M EDT eCW1 ([facility]) [id number] History of malignant neoplasm of prostat e History of malignant neoplasm of prostate Problem 05/05/2021 12:00:00 AM EDT MEDENT ([facility] I10 Essential hypertension Essential hypertension Problem 05/05/2021 12:00:00 AM EDT MED[facility] ([facility] Surgeries/Procedures Procedure Description Date Indications Data Source(s) OFFICE OUTPATIENT VISIT 25 MINUTES 10/03/2021 12:00:00 AM EST MED[facility] ([facility] ARTHROCENTESIS ASPIR&/INJECTION MAJOR JT/BURSA 021 12:00:00 AM EDT MEDENT ([facility] ) OFFICE OUTPATIENT VISIT 25 MINUTES 07/19/2021 12:00:00 AM EDT MEDENT ([facility] ) OFFICE OUTPATIENT VISIT 25 MINUTES 05/05/2021 12:00:00 AM EDT MED[facility] ([facility] X-Ray Hip Unilateral With Pelvis 2-3 Views 04/03/2021 12:00:00 AM EDT MEDENT ([facility] ) OFFICE OUTPATIENT VISIT 25 MINUTES 04/03/2021 12:00:00 AM EDT MED[facility] ([facility]) Results ID Date Data Source [id number] 09/18/2021 10:06:00 AM EDT MED[facility] ([facility] Name Value Range Interpretation Code Description Data Stefani rce(s) Supporting Document(s) Glucose, Fasting 107 mg/dL 70-100 MED[facility] ([facility] Creatinine For GFR 0.75 mg/dL 0.70-1.30 MED[facility] ([facility] Blood Urea Nitrogen 7 mg/dL 7-18 MED[facility] ([facility] Glomerular Filtration Rate Laboratory test result MED[facility] ([facility] <content>Units are mL/min/1.73 m2</content>
<content></content>
<content>Chronic Kidney Disease Staging per NKF:</content>
<content></content>
<content>Stage I & II GFR >=60 Normal to Mildly Decreased</content>
<content>Stage III GFR 30- 59 Moderately Decreased</content>
<content>Stage IV GFR 15-29 Severely Decreased</content>
<content>Stage V GFR <15 Very Little GFR Left</content>
<content>ESRD GFR <15 on TEXTILE ARTIST</content>
<content></content> Sodium Level 138 meq/L 136-145 MED[facility] ([facility] Potassium Serum 4.3 meq/L 3.5-5.1 MED[facility] ([facility] Chloride Level 107 meq/L 98-107 MED[facility] ([facility] Anion Gap 3 meq/L 8-16 [facility] ([facility] Carbon Dioxide Level 28 meq/L 21-32 MED[facility] ([facility] Calcium Level 9.3 mg/dL 8.5-10.1 MED[facility] ([facility] ID Date Data Source [id number] 09/18/2021 10:06:00 AM EDT MED[facility] ([facility] Name Value Range Interpretation Code Description Data Stefani rce(s) Supporting Document(s) White Blood Count 7.5 10 4.0-10.0 MED[facility] ([facility] Red Blood Count 5.32 10 4.30-6.10 [facility] ([facility] Hematocrit 47.2 % 42.0-52.0 MED[facility] ([facility] Hemoglobin 15.8 g/dL 13.5-17.5 [facility] ([facility] Mean Corpuscular Hemoglobin 29.7 pg 27.0-33.0 [facility] ([facility] Mean Corpuscular Volume 88.7 fl 80.0-96.0 M EDENT ([facility] Red Cell Distribution Width 14.0 % 11.5-14.5 [facility] ([facility] Mean Corpuscular HGB Conc 33.5 g/dL 32.0-36.5 [facility] ([facility] Neutrophils % 73.2 % 36.0-66.0 [facility] ([facility] Platelet Count, Automated 169 10 150-450 [facility] ([facility] Lymph % 14.5 % 24.0-44.0 [facility] ([facility] Cole % 8.4 % 2.0-8.0 [facility] ([facility] Baso % 0.4 % 0.0-1.0 [facility] ([facility] Eos % 2.8 % 0.0-3.0 [facility] ([facility] Nucleated Red Blood Cell % 0.0 % 0-0 MED ENT ([facility] Immature Granulocyte % 0.7 % 0-3.0 [facility] ([facility] Neutrophils # 5.5 10 1.5-8.5 [facility] ([facility] Lymph # 1.1 10 1.5-5.0 [facility] ([facility] Cole # 0.6 10 0.0-0.8 [facility] ([facility] Baso # 0.0 10 0.0-0.2 [facility] ([facility] Eos # 0.2 10 0.0-0.5 [facility] ([facility] ID Date Data Source [id number] 10/03/2020 11:25:00 AM EST MED[facility] ([facility] Name Value Range Interpretation Code Description Data [facility](s) Supporting Document(s) Urate [Mass/volume] in Serum or Plasma 3.5 mg/dL 3.5-7.2 MED[facility] ([facility] ID Date Data Source [id number] 10/03/2020 11:25:00 AM EST MED[facility] ([facility] Name Value Range Interpretation Code Description Data [facility](s) Supporting Document(s) Blood Urea Nitrogen 10 mg/dL [...] Little GFR Left</content>
<content>ESRD GFR <15 on TEXTILE ARTIST</content>
<content></content> Anion Gap 5 meq/L 8-16 [facility] ([facility] Carbon Dioxide Level 30 meq/L 21-32 [facility] ([facility] Chloride Level 104 meq/L 98-107 [...] [facility] ID Date Data Source [id number] 10/03/2020 11:25:00 AM EST MEDENT ([facility] Cooley [...] Value Status Description Data Source(s ) Smoking 10/03/2021 12:00:00 AM EST - 11/18/1999 12:00:00 AM EST Patient is a former smoker completed Patient is a former smoker MED[facility] ([facility] Smoking 09/29/2021 12:00:00 AM EST Former Smoker completed Former Smoker eCW1 ([facility]) Smoking 09/29/2021 12:00:00 AM EST Former Smoker completed Former Smoker eCW1 ([facility]) Smoking 09/29/2021 12:00:00 AM EST Former Smoker completed Former Smoker eCW1 ([facility]) Smoking 09/13/2021 12:00:00 AM EDT Former Smoker completed Former Smoker eCW1 ([facility]) Smoking 10/27/2020 12:00:00 AM EST Former Smoker completed Former Smoker eCW1 ([facility]) Smoking 10/27/2020 12:00:00 AM EST Former Smoker completed Former Smoker eCW1 ([facility]) Vital Signs ID Date Data Source UNK Name Value Range Interpretation Code Description Data Source(s) Systolic blood pressure 168 mm[Hg] 168 mm[Hg] M EDENT ([facility] Diastolic blood pressure 88 mm[Hg] 88 mm[Hg] MED[facility] ([facility] Systolic blood pressure 144 mm[Hg] 144 mm[Hg] M EDENT ([facility] Diastolic blood pressure 83 mm[Hg] 83 mm[Hg] [facility] ([facility] Heart rate 99 /min 99 /min MED[facility] ([facility] Body temperature 96.7 [degF] 96.7 [degF] [facility] ([facility] Respiratory rate 16 /min 16 /min MED[facility] ( [facility] Body height 73 [in_i] 73 [in_i] MED[facility] ([facility] 6'1" Body weight 246.12 [lb_av] 246.12 [lb_av] MEDEN T ([facility] Oxygen saturation in Arterial blood by Pulse oximetry 98 % 98 % MEDENT ([facility] [place] body weight 184 [lb_av] 184 [lb_av] MEDEN T ([facility] Body mass index (BMI) [Ratio] 32.5 kg/m2 32.5 k g/m2 MED[facility] ([facility] Body weight 246.8 [lb_av] 246.8 [lb_av] [facility] ([facility]) Body weight 111.95 kg 111.95 kg [facility] ([facility]) Body height 73 [in_i] 73 [in_i] eCW1 ([facility]) Body mass index (BMI) [Ratio] 32.56 kg/m2 32.56 kg/m2 [facility] ([facility]) Systolic blood pressure 136 mm[Hg] 136 mm[Hg] e CW1 ([facility]) Diastolic blood pressure 76 mm[Hg] 76 mm[Hg] eCW1 ([facility]) Body weight 245.6 [lb_av] 245.6 [lb_av] eCW1 ([facility]) Body weight 111.4 kg 111.4 kg eCW1 ([facility]) Body height 73 [in_i] 73 [in_i] eCW1 ([facility]) Body mass index (BMI) [Ratio] 32.40 kg/m2 32.40 kg/m2 W1 ([facility]) Systolic blood pressure 140 mm[Hg] 140 mm[Hg] e CW1 ([facility]) Diastolic blood pressure 80 mm[Hg] 80 mm[Hg] eCW1 ([facility]) Diastolic blood pressure 83 mm[Hg] 83 mm[Hg] [...] 98 % MED[facility] ([facility] [place] body weight 184 [lb_av] 184 [lb_av] MEDEN T ([facility] Body mass index (BMI) [Ratio] 33.8 kg/m2 33.8 k g/m2 [facility] ([facility] Systolic blood pressure 139 mm[Hg] 139 mm[Hg] M EDENT ([facility] Body temperature 97.3 [degF] 97.3 [degF] MEDENT ([facility]) Body height 74.5 [in_i] 74.5 [in_i] MEDENT ([facility]) 6'2.50" Body weight 254.00 [lb_av] 254.00 [lb_av] MEDEN T ([facility]) Body mass index (BMI) [Ratio] 32.2 kg/m2 32.2 k g/m2 MED[facility] ([facility]) Body weight 253 [lb_av] 253 [lb_av] eCW1 ([facility]) Body height 73 [in_i] 73 [in_i] eCW1 ([facility]) Respiratory rate 18 /min 18 /min eCW1 ([facility]) Heart rate 60 /min 60 /min eCW1 ([facility]) Diastolic blood pressure 84 mm[Hg] 84 mm[Hg] eCW1 ([facility]) Body mass index (BMI) [Ratio] 33.38 kg/m2 33.38 kg/m2 eCW1 ([facility]) Body temperature 95.5 [degF] 95.5 [degF] eCW1 ( [facility]) Systolic blood pressure 140 mm[Hg] 140 mm[Hg] e CW1 ([facility]) Heart rate 61 /min 61 /min [facility] ([facility] Systolic blood pressure 159 mm[Hg] 159 mm[Hg] M EDENT ([facility] Diastolic blood pressure 90 mm[Hg] 90 mm[Hg] [facility] ([facility] Systolic blood pressure 134 mm[Hg] 134 mm[Hg] M EDENT ([facility] Diastolic blood pressure 79 mm[Hg] 79 mm[Hg] [facility] ([facility] Body temperature 96.9 [degF] 96.9 [degF] [facility] ([facility] Respiratory rate 16 /min 16 /min MED[facility] ( [facility] Body height 73 [in_i] 73 [in_i] MED[facility] ([facility] 6'1" Body weight 252.38 [lb_av] 252.38 [lb_av] MEDEN T ([facility] Oxygen saturation in Arterial blood by Pulse oximetry 98 % 98 % MED[facility] ([facility] [place] body weight 184 [lb_av] 184 [lb_av] MEDEN T ([facility] Body mass index (BMI) [Ratio] 33.3 kg/m2 33.3 k g/m2 [facility] ([facility] Body temperature 97.3 [degF] 97.3 [degF] MED[facility] ([facility] Patient Treatment Plan of Care Planned Activity Planned Date Details Description Data Source (s) ciclopirox 0.0077 MG/MG Topical Gel 09/29/2021 12:00:00 AM EST eCW1 ([facility]) ciclopirox 0.0077 MG/MG Topical Gel 09/29/2021 12:00:00 AM EST eCW1 ([facility]) ciclopirox 0.0077 MG/MG Topical Gel 09/29/2021 12:00:00 AM EST eCW1 ([facility]) Griseofulvin 500 MG Oral Tablet 09/13/2021 12:00:00 AM EDT eCW1 ([facility]) Econazole Nitrate 10 MG/ML Topical Cream 09/13/2021 12:00:00 AM EDT eCW1 ([facility]) Econazole Nitrate 10 MG/ML Topical Cream 09/13/2021 12:00:00 AM EDT eCW1 ([facility]) Griseofulvin 500 MG Oral Tablet 09/13/2021 12:00:00 AM EDT eCW1 ([facility])
--- OUTSIDE RECORDS SUMMARY | 2021-10-19 07:18 | CCD ---
Author Author [facility] [employer] [facility] Organization [facility] [employer] [facility] [facility] Address Unknown Phone Unavailable Care Team Providers Care Can Bander Operator Name Role Phone Carolina Murphy Unavailable PROBLEMS Type Condition ICD9-CM Code TSY54-SM Code Onset Dates Condition S tatus W/U Status Risk SNOMED Code Notes Problem Elevated PSA R97.20 Active confirmed 0650940 05 Problem Erectile dysfunction after radical prostatectomy N 52.31 Active confirmed 742147457 Problem Tinea corporis B35.4 Active confirmed 67017 002 Problem Prostate cancer C61 Active confirmed 2549 83385 Problem BPH loc w urin obs/LUTS N40.1 Active confirmed 776905972 Problem Preop testing Z01.818 Active confirmed 48721 9001 Problem UTI (urinary tract infection) N39.0 Active confirm ed [id number] ALLERGIES No Known Allergies ENCOUNTERS from 1965 to 2021-09-30 Encounter Location Date Provider Diagnosis [facility] Dermatology [address] [facility] [phone] [place] [address] Sep, Carolina Murphy IMMUNIZATIONS No Information SOCIAL HISTORY Tobacco Use: Social History Observation Description Date Details (start date - stop date) Former Smoker Sex Assigned At : Social History Observation Description Sex Assigned At Unknown Education: Question Answer Notes Level of Education: Finished College Language: Question Answer Notes Languages spoken: Cameroonian Pentecostal: Question Answer Notes Pentecostal No gnosticism beliefs that would impact health care. Sexual [...] REASON FOR REFERRAL No Information VITAL SIGNS No information MEDICATIONS Medication SIG (Take, Route, Frequency, Duration) Notes Start Da te End Date Status Colace 100 MG 1 capsule Orally bid for 10 day(s) Oct, 018 Not-Taking Aspirin 81 MG 1 tablet Orally Once a day Not-Taking Econazole Nitrate 1 % 1 application Externally Twi ce daily to chest, back, arms, feet for 21 days Aug, Active Multi Complete - Orally Active Griseofulvin Microsize 500 MG 1 tablet with a meal Ora lly Twice a day for 14 day(s) Aug, Active Metoprolol Tartrate 50 MG 1 tablet with food Orally Twice a day Active Ciprofloxacin HCl 500 MG 1 tablet the night before yo ur biopsy and 1 the morning of Orally every 12 hrs for 1 days Jul, Not-Taking Colchicine 0.6 MG 1 tablet Orally Once a day Not-Taking Viagra 100 MG 1 tablet Orally on Mondays, Wednesdays, and ays Oct, Active Cyclobenzaprine HCl 10 MG 1 tablet as needed Orally Three times a day Active Fish Oil 1200 MG 1 capsule Orally Once a day Active Percocet 5-325 MG 1-2 tablet(s) Orally every 6 hrs as needed for pain (MDD 8) Oct, Not-Taking Colcrys 0.6 MG 1 tablet Orally Once a day Not-Taking Allopurinol 100 MG 1 tablet Orally Once a day Active Fleet Enema 7-19 GM/118ML as directed Rectal the eula ng of your biopsy for 1 dose(s) Jul, Not-Taking Meclizine HCl 25 MG 1 tablet as needed Orally Once a day Not-Taking Flomax 0.4 MG 1 capsule Orally Daily Aug, Not-Taking Vitamin D3 1000 UNIT 1 capsule Orally Once a day for 30 day(s) bid Active Ciclopirox 0.77 % 1 application Externally Twi ce a day paint on nails for 30 days Sep, Active Crestor 40 MG 1 tablet Orally Once a day Not-Taking Ciprofloxacin HCl 500 MG 1 tablet Orally Daily for 10 day(s) Oct, Not-Taking PROCEDURES No Information RESULTS No Results REASON FOR VISIT RX MEDICAL (GENERAL) HISTORY Type Description Date Medical [...] No Information FUNCTIONAL STATUS No Information ASSESSMENTS No Information PLAN OF TREATMENT Medication Medication Name Sig Start Date Stop Date Ciclopirox 0.77 % 1 application Externally Twi ce a day paint on nails for 30 days Sep, Next Appt Details Provider Name:Cristobal Rowe, 11:15:00 AM, [address], , [place], [address], Provider Name:Carolina Murphy, 08:45:00 AM, [address] [place] [address], , [place], [address], Insurance Providers Payer Name Payer Address Payer Phone Insured Name Patient Relati onship to Insured Coverage Start Date Coverage End Date GEHA-ASA [id number] [facility] [id number] VALENTINO ROBERTS
--- OUTSIDE RECORDS SUMMARY | 2021-10-19 07:18 | CCD ---
Author Author [facility] Organization [facility] Address Unknown Phone Unavailable Care Team Providers Care Active Directory Architect Name Role Phone Carolina Murphy Unavailable PROBLEMS ALLERGIES No Known Allergies ENCOUNTERS from 1965 to 2021-10-04 IMMUNIZATIONS No Information SOCIAL HISTORY REASON FOR REFERRAL No Information VITAL SIGNS MEDICATIONS PROCEDURES No Information RESULTS No Results REASON FOR VISIT MEDICAL (GENERAL) HISTORY Goals Section Health Concerns MEDICAL EQUIPMENT No Information MENTAL STATUS FUNCTIONAL STATUS ASSESSMENTS PLAN OF TREATMENT Insurance Providers
--- OUTSIDE RECORDS SUMMARY | 2021-10-19 07:18 | CCD ---
Author Author [facility] [employer] [facility] Organization [facility] [employer] [facility] Address Unknown Phone Unavailable Care Team Providers Care Construction Trench Digger Name Role Phone Carolina Murphy Unavailable PROBLEMS Type Condition ICD9-CM Code QNP54-WK Code Onset Dates Condition S tatus W/U Status Risk SNOMED Code Notes Problem Elevated PSA R97.20 Active confirmed 3803090 05 Problem Erectile dysfunction after radical prostatectomy N 52.31 Active confirmed 073383493 Problem Tinea corporis B35.4 Active confirmed 56146 002 Problem Prostate cancer C61 Active confirmed 2549 59879 Problem BPH loc w urin obs/LUTS N40.1 Active confirmed 929527956 Problem Preop testing Z01.818 Active confirmed 59261 9001 Problem UTI (urinary tract infection) N39.0 Active confirm ed [id number] ALLERGIES No Known Allergies ENCOUNTERS from 1965 to 2021-10-06 Encounter Location Date Provider Diagnosis [facility] Dermatology [address] [facility] [phone] [place] [address] Sep, Carolina Clemensea corporis B35.4 IMMUNIZATIONS No Information SOCIAL HISTORY Tobacco Use: Social History Observation Description Date Details (start date - stop date) Former Smoker Sex Assigned At : Social History Observation Description Sex Assigned At Unknown Education: Question Answer Notes Level of Education: Finished College Language: Question Answer Notes Languages spoken: Niuean Confucianism: Question Answer Notes Confucianism No adventist beliefs that would impact health care. Sexual [...] 12 hrs for 1 days Jul, Not-Taking Multi Complete - Orally Active Griseofulvin Microsize 500 MG 1 tablet with a meal Ora lly Twice a day for 14 day(s) Aug, Active Metoprolol Tartrate 50 MG 1 tablet with food Orally Twice a day Active Econazole Nitrate 1 % 1 application Externally Twi ce daily to chest, back, arms, feet for 21 days Aug, Active Colchicine 0.6 MG 1 tablet Orally [...] 7-19 GM/118ML as directed Rectal the eula blankenship of your biopsy for 1 dose(s) Jul, [...] Information RESULTS No Results REASON FOR VISIT Refill MEDICAL (GENERAL) HISTORY Type Description Date Medical [...] Notes Treatment Notes Treatm ent Clinical Notes Sep, Tinea corporis (ICD-10 - B35.4) PLAN OF TREATMENT Medication Medication Name Sig Start Date Stop Date Griseofulvin Microsize 500 MG 1 tablet with a meal Ora lly Twice a day for 14 day(s) Aug, Ciclopirox 0.77 % 1 application Externally Twi ce a day paint on nails for 30 days Sep, Econazole Nitrate 1 % 1 application Externally Twi ce daily to chest, back, arms, feet for 21 days Aug, Next Appt Details Provider Name:Cristobal Rowe, 11:15:00 AM, [address], , [place], [address], Provider Name:Carolina Murphy, 08:45:00 AM, [address] [facility], , [place], [address], Insurance Providers Payer Name Payer Address Payer Phone Insured Name Patient Relati onship to Insured Coverage Start Date Coverage End Date GEHA-ASA [id number] [facility] [id number] VALENTINO ROBERTS self
--- OUTSIDE RECORDS SUMMARY | 2021-10-19 07:18 | CCD | Continuity of Care Document ---
Author Author Adal MURILLO M.D. Organization Unknown Address [address] [place] [address] Phone [phone] Care Team Providers Care Business Services Vice President Name Role Phone [facility] Marquise Germain M.D. AUTM [phone] [facility] Problems Active Problems Provider Date Mixed hyperlipidemia Rashaad De La Cruz M.D. Onset: 12/04 Disorder of lumbar disc Rashaad De La Cruz M.D. Onset: Generalized anxiety disorder Rashaad De La Cruz M.D. Onse t: 03/24/2013 Essential hypertension Rosa Maria Barragan PA Onset: 0 05/05/2021 History of malignant neoplasm of prostate Cary Murillo M.D. Onset: 05/05/2021 Social History Type Date Description Comments Sex Unknown Tobacco Use Start: Unknown End: Unknown denies cigarette use Tobacco Use Start: Unknown Never Used Smokeless Tobacco ETOH Use Consumes 3-4 beers per day Tobacco Use Start: 11/18/80 End: 11/18/99 Patient is a forme r smoker smoked about 1 1/2 ppd Recreational Drug Use Denies Drug Use Smoking Status Reviewed: 05/05/21 Patient is a former smoker sm oked about 1 1/2 ppd Exercise Type/Frequency Exercises sporadically b ased on joint pain Tattoo/Piercing None Sun Exposure Moderate amount of sun exposure Sun Exposure Uses sunscreen Sun Exposure Does not use tanning beds Seat Belt/Car Seat Always uses seat belt Smoke Alarms Yes Smoke Alarms Carbon Monoxide Detector: Yes Allergies and adverse reactions Description No Known Drug Allergies Medications Active Medications SIG Qnty Indications Ordering Provide r Date Multi Vitamin Tablets 1 po q d otc Unknown Fish Oil Maximum Strength 1200mg C apsules daily Unknown Allopurinol 100mg Tablets 1 tab po daily Unknown Metoprolol Tartrate 50mg Tablets 1 1/2 tabs by mouth twice a day Unknown Crestor 40mg Tablets take 1 tablet by mouth every day for cholesterol Unknown Cyclobenzaprine HCL 10mg Tablets 1 tab po at bedtime Unknown Aspirin 81mg Tablets DR 1 by mouth every day Unknown Vitamin D (Cholecalciferol) 25mcg (1000 Ut) Tablets 1 by mouth bid Unknown Immunizations CPT Code Status Date Vaccine Lot # [id number] Given 02/28/2021 Moderna Sars-(Co vid-19) vaccine, mRNA, LNP-S, PF, 100 mcg/ 0.5 mL 36320 Given 01/31/2021 Moderna Sars-(Co vid-19) vaccine, mRNA, LNP-S, PF, 100 mcg/ 0.5 mL 74982 Given 08/25/2020 Influenza Virus Vaccine, Livan drivalent,multidose vial [id number] 23067 Given 09/06/2015 Influenza Vaccination [id number] 03113 Given 11/23/2013 MMR [id number] Vital Signs Date Vital Result Comment 05/05/2021 10:42am BP Systolic 139 mmHg BP Diastolic 83 mmHg Heart Rate 58 /min Body Temperature 97.0 F Respiratory Rate 17 /min Height 73 inches 6'1" Weight 256.38 lb O2 % BldC Oximetry 98 % Peak Expiratory Flow Rate 565 Estimated Peak Flow Rate [place] Body Weight 184 lb BMI (Body Mass Index) 33.8 kg/m2 10/06/2020 10:07am BP Systolic 159 mmHg BP Diastolic 90 mmHg BP Systolic Recheck 134 mmHg BP Diastolic Recheck 79 mmHg Heart Rate 61 /min Body Temperature 96.9 F Respiratory Rate 16 /min Height 73 inches 6'1" Weight 252.38 lb O2 % BldC Oximetry 98 % Peak Expiratory Flow Rate 553 Estimated Peak Flow Rate [place] Body Weight 184 lb BMI (Body Mass Index) 33.3 kg/m2 Results Test Acquired Date Facility Test Result H/L Range Note CBC With Differential 09/18/2021 [place] [address] [phone] White Blood Count 7.5 10 Normal 4.0-10.0 Red Blood Count 5.32 10 Normal 4.30-6.10 Hemoglobin 15.8 g/dL Normal 13.5-17.5 Hematocrit 47.2 % Normal 42.0-52.0 Mean Corpuscular Volume 88.7 fl Normal 80.0-96.0 Mean Corpuscular Hemoglobin 29.7 pg Normal 27.0-33.0 Mean Corpuscular HGB Conc 33.5 g/dL Normal 32.0-36.5 Red Cell Distribution Width 14.0 % Normal 11.5-14.5 Platelet Count, Automated 169 10 Normal 150-450 Neutrophils % 73.2 % High 36.0-66.0 Lymph % 14.5 % Low 24.0-44.0 [place] % 8.4 % High 2.0-8.0 Eos % 2.8 % Normal 0.0-3.0 Baso % 0.4 % Normal 0.0-1.0 Immature Granulocyte % 0.7 % Normal 0-3.0 Nucleated Red Blood Cell % 0.0 % Normal 0-0 Neutrophils # 5.5 10 Normal 1.5-8.5 Lymph # 1.1 10 Low 1.5-5.0 Bibb # 0.6 10 Normal 0.0-0.8 Eos # 0.2 10 Normal 0.0-0.5 Baso # 0.0 10 Normal 0.0-0.2 Basic Metabolic Profile 09/18/2021 Patient Service [facility] [place], [place] [id number] [phone] Glucose, Fasting 107 mg/dL High 70-100 Blood Urea Nitrogen 7 mg/dL Normal 7-18 Creatinine For GFR 0.75 mg/dL Normal 0.70-1.30 Glomerular Filtration Rate > 60.0 Normal >56 1 Sodium Level 138 mEq/L Normal 136-145 Potassium Serum 4.3 mEq/L Normal 3.5-5.1 Chloride Level 107 mEq/L Normal 98-107 Carbon Dioxide Level 28 mEq/L Normal 21-32 Anion Gap 3 mEq/L Low 8-16 Calcium Level 9.3 mg/dL Normal 8.5-10.1 1 Units are mL/min/1.73 m2 Chronic Kidney Disease Staging per NKF: Stage I & II GFR >=60 Normal to Mildly Decreased Stage III GFR 30-59 Moderately Decreased Stage IV GFR 15-29 Severely Decreased Stage V GFR <15 Very Little GFR Left ESRD 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 C 61 Malignant neoplasm of prostate I48.91 Unspecified atrial fibrillat ion I10 Essential (primary) hyperten chaim E78.2 Mixed hyperlipidemia M10.9 Gout, unspecified R25.2 Cramp and spasm Assessments Date Code Description Provider 05/05/2021 C61 Malignant neoplasm of prostate W Cary lechuga M.D. 05/05/2021 I48.91 Unspecified atrial fibrillation Cary Murillo M.D. 05/05/2021 I10 Essential (primary) hypertension Cary Murillo M.D. 05/05/2021 E78.2 Mixed hyperlipidemia Pastor Murillo M.D. 05/05/2021 M10.9 Gout, unspecified Kirti Murillo M.D. 05/05/2021 R25.2 Cramp and spasm Cary Murillo M.D. Plan of Treatment Future Appointment(s):* 11/07/2021 10:00 am - Cary Murillo M.D. at Main Office 05/05/2021 - Cary Murillo M.D.* C61 Malignant neoplasm of prostate* Comments:* follows with urology. Had prostatectomy. * I48.91 Unspecified atrial fibrillation* Comments:* managed per cardiology. * I10 Essential (primary) hypertension * E78.2 Mixed hyperlipidemia* Comments:* HOLD crestor to see if muscle cramping improves. * M10.9 Gout, unspecified * R25.2 Cramp and spasm* Comments:* will see if from statin, if not improved with holding statin will get more labs. Goals 05/05/2021 - Cary Murillo M.D.* I10 Essential (primary) hypertension* Stay active and continue meds to maintain good blood pressure readings. Functional Status Functional Condition Comment Date Status Independent with all ADL's Activ e Glasses reading Active Independent with all IADL's Acti ve Mental Status Mental Condition Comment Date Status None Active Referrals Refer to Dr Reason for Referral Status Appt Date [facility] Dermatology Pt needs rountine skin screening. Thank justine pineda Scheduled 09/13/2021 [facility] Dermatology [address] [facility], [place] [address] [phone]
--- OUTSIDE RECORDS SUMMARY | 2021-10-19 07:18 | CCD | Continuity of Care Document ---
Author Author Adal MURILLO M.D. Organization Unknown Address [address] [place] [address] Phone [phone] Care Team Providers Care Business Relationship Manager Name Role Phone [facility] [phone] Marquise Germain M.D. AUTM [phone] [facility] AUTM Problems Active [...] Use Denies Drug Use Smoking Status Reviewed: 10/03/21 Patient is a former smoker sm oked [...] SIG Qnty Indications Ordering Provide r Date Xarelto 20mg Tablets 1 by mouth every day 90tabs I82.402 Cary Murillo M.D. 10/03/2021 Multi Vitamin Tablets 1 po q d otc Unknown Fish Oil Maximum Strength 1200mg C apsules daily Unknown Allopurinol 100mg Tablets 1 tab po daily Unknown Metoprolol Tartrate 50mg Tablets 1 1/2 tabs by mouth twice a day Unknown Cyclobenzaprine HCL 10mg Tablets 1 tab po at bedtime Unknown Aspirin 81mg Tablets DR 1 by mouth every day Unknown Vitamin D (Cholecalciferol) 25mcg (1000 Ut) Tablets 1 by mouth bid Unknown Xarelto 15mg Tablets 1 by mouth bid x 21 days Unknown Immunizations CPT Code Status Date Vaccine Lot # [id number] Given 02/28/2021 Moderna Sars-(Co vid-19) vaccine, mRNA, LNP-S, PF, 100 mcg/ 0.5 mL 04420 Given 01/31/2021 Moderna Sars-(Co vid-19) vaccine, mRNA, LNP-S, PF, 100 mcg/ 0.5 mL 29074 Given 08/25/2020 Influenza Virus Vaccine, Livan drivalent,multidose vial [id number] 36897 Given 09/06/2015 Influenza Vaccination [id number] 91005 Given 11/23/2013 MMR [id number] Vital Signs Date Vital Result Comment 10/03/2021 8:56am BP Systolic 168 mmHg BP Diastolic 88 mmHg BP Systolic Recheck 144 mmHg BP Diastolic Recheck 83 mmHg Heart Rate 99 /min Body Temperature 96.7 F Respiratory Rate 16 /min Height 73 inches 6'1" Weight 246.12 lb O2 % BldC Oximetry 98 % Peak Expiratory Flow Rate 565 Estimated Peak Flow Rate [place] Body Weight 184 lb BMI (Body Mass Index) 32.5 kg/m2 05/05/2021 10:42am BP Systolic 139 mmHg BP Diastolic 83 mmHg Heart Rate 58 /min Body Temperature 97.0 F Respiratory Rate 17 /min Height 73 inches 6'1" Weight 256.38 lb O2 % BldC Oximetry 98 % Peak Expiratory Flow Rate 565 Estimated Peak Flow Rate [place] Body Weight 184 lb BMI (Body Mass Index) 33.8 kg/m2 Results Test Acquired Date Facility Test Result H/L Range Note CBC With Differential 09/18/2021 Patient Service [place], [place] [address] [phone] White Blood Count 7.5 10 Normal 4.0-10.0 [...] 36.0-66.0 Lymph % 14.5 % Low 24.0-44.0 [place] % 8.4 % High 2.0-8.0 Eos % 2.8 % Normal 0.0-3.0 Baso % 0.4 % Normal 0.0-1.0 Immature Granulocyte % 0.7 % Normal 0-3.0 Nucleated Red Blood Cell % 0.0 % Normal 0-0 Neutrophils # 5.5 10 Normal 1.5-8.5 Lymph # 1.1 10 Low 1.5-5.0 [place] # 0.6 10 Normal 0.0-0.8 Eos # 0.2 10 Normal 0.0-0.5 Baso # 0.0 10 Normal 0.0-0.2 Basic Metabolic Profile 09/18/2021 [place] [address] [phone] Glucose, Fasting 107 mg/dL High 70-100 Blood [...] Little GFR Left ESRD GFR <15 on RESPIRATORY CLINICIAN Procedures Date Code Description Status 05/05/2021 92844 Office/Outpatient Established Mo d MDM 30-39 Min Completed Medical Devices Description No Information Available Encounters Type Date Location Provider Dx Diagnosis Office Visit 05/05/2021 10:45a Main Office Cary Murillo M.D. C 61 Malignant neoplasm of prostate I48.91 Unspecified atrial fibrillat ion I10 Essential (primary) hyperten chaim E78.2 Mixed hyperlipidemia M10.9 Gout, unspecified R25.2 Cramp and spasm Assessments Date Code Description Provider 10/03/2021 M15.0 Primary generalized (osteo)arthr itis Cary Murillo M.D. 10/03/2021 I82.402 Acute embolism and t hrombosis of unspecified deep veins of left lower extremity Cary Murillo M.D. 05/05/2021 C61 Malignant neoplasm of prostate W Cary lechuga M.D. 05/05/2021 I48.91 Unspecified atrial fibrillation Cary Murillo M.D. 05/05/2021 I10 Essential (primary) hypertension Cary Murillo M.D. 05/05/2021 E78.2 Mixed hyperlipidemia Pastor Murillo M.D. 05/05/2021 M10.9 Gout, unspecified Kirti Murillo M.D. 05/05/2021 R25.2 Cramp and spasm Cary Murillo M.D. Plan of Treatment Future Appointment(s):* 11/07/2021 10:00 am - Cary Murillo M.D. at Main Office 10/03/2021 - Cary Murillo M.D.* M15.0 Primary generalized (osteo)arthritis * I82.402 Acute embolism and thrombosis of unspecified deep veins of left lower extremity* New Medication:* Xarelto 20 mg - 1 by mouth every day Functional Status Functional Condition Comment Date Status Independent with all ADL's Activ e Glasses reading Active Independent with all IADL's Acti ve Mental Status Mental Condition Comment Date Status None Active Referrals Refer to Dr Reason for Referral Status Appt Date [facility] Dermatology Pt needs rountine skin screening. Thank justine Nevarez 09/13/2021 [facility] Dermatology [address] [facility], [place] [address] [phone]
--- OUTSIDE RECORDS SUMMARY | 2021-10-19 07:18 | CCD | Continuity of Care Document ---
Author Author Adal MURILLO M.D. Organization Unknown Address [address] [place] [address] Phone [phone] Care Team Providers Care Chefs Name Role Phone [facility] Marquise Germain M.D. AUTM [phone] [facility] AUTM Problems Active [...] CPT Code Status Date Vaccine Lot # [id number] Given 02/28/2021 Moderna Sars-(Co vid-19) vaccine, mRNA, LNP-S, PF, 100 mcg/ 0.5 mL 00432 Given 01/31/2021 Moderna Sars-(Co vid-19) vaccine, mRNA, LNP-S, PF, 100 mcg/ 0.5 mL 76702 Given 08/25/2020 Influenza Virus Vaccine, Livan drivalent,multidose vial [id number] 85077 Given 09/06/2015 Influenza Vaccination [id number] 85557 Given 11/23/2013 MMR [id number] Vital Signs Date Vital Result Comment 10/03/2021 8:56am BP Systolic 168 mmHg BP Diastolic 88 mmHg BP Systolic Recheck 144 mmHg BP Diastolic Recheck 83 mmHg Heart Rate 99 /min Body Temperature 96.7 F Respiratory Rate 16 /min Height 73 inches 6'1" Weight 246.12 lb O2 % BldC Oximetry 98 % Peak Expiratory Flow Rate 565 Estimated Peak Flow Rate [place] Body Weight 184 lb BMI (Body Mass Index) 32.5 kg/m2 05/05/2021 10:42am BP Systolic 139 mmHg BP Diastolic 83 mmHg Heart Rate 58 /min Body Temperature 97.0 F Respiratory Rate 17 /min Height 73 inches 6'1" Weight 256.38 lb O2 % BldC Oximetry 98 % Peak Expiratory Flow Rate 565 Estimated Peak Flow Rate [place] Body Weight 184 lb BMI (Body Mass Index) 33.8 kg/m2 Results Test Acquired Date Facility Test Result H/L Range Note CBC With Differential 09/18/2021 Patient Service [place], [place] [address] [phone] White Blood Count 7.5 10 Normal 4.0-10.0 [...] 36.0-66.0 Lymph % 14.5 % Low 24.0-44.0 [place] % 8.4 % High 2.0-8.0 Eos % 2.8 % Normal 0.0-3.0 Baso % 0.4 % Normal 0.0-1.0 Immature Granulocyte % 0.7 % Normal 0-3.0 Nucleated Red Blood Cell % 0.0 % Normal 0-0 Neutrophils # 5.5 10 Normal 1.5-8.5 Lymph # 1.1 10 Low 1.5-5.0 [place] # 0.6 10 Normal 0.0-0.8 Eos # 0.2 10 Normal 0.0-0.5 Baso # 0.0 10 Normal 0.0-0.2 Basic Metabolic Profile 09/18/[address] [place] [address] [phone] Glucose, Fasting 107 mg/dL High 70-100 Blood [...] Little GFR Left ESRD GFR <15 on CHECK VIEWER Procedures Date Code Description Status 10/03/2021 24797 Office/Outpatient Established Mo d MDM 30-39 Min Completed 05/05/2021 79399 Office/Outpatient Established Mo d MDM 30-39 Min Completed Medical Devices Description No Information Available Encounters Type Date Location Provider Dx Diagnosis Office Visit 10/03/2021 9:00a Main Office Cary Murillo M.D. M 15.0 Primary generalized (osteo)arthritis I82.402 Acute embolism and thombos u nsp deep veins of l low extrem Office Visit 05/05/2021 10:45a Main Office Cary [...] - Cary Murillo M.D.* M15.0 Primary generalized (osteo)arthritis* Comments:* form completed for handicap parking. * I82.402 Acute embolism and thrombosis of unspecified deep veins of left lower extremity* New Medication:* Xarelto 20 mg - 1 by mouth every day * Comments:* Advised pt to complete 21 days of Xarelto 15 mg BID given by ED, once finished start 20 mg Xarelto once per day. Will reasses in three months, which is the minimum duration of anticoagulation. But, considering prior provoked DVT and hx of PAF may consider life long anticoagulation. Functional Status Functional Condition Comment Date Status Independent with all ADL's Activ e Glasses reading Active Independent with all IADL's Acti ve Mental Status Mental Condition Comment Date Status None Active Referrals Refer to Reason for Referral Status Appt Date [facility] Dermatology Pt needs rountine skin screening. Thank justine ying. Closed 09/13/2021 [facility] Dermatology [address] [facility], [place] [address] [phone]
--- OUTSIDE RECORDS SUMMARY | 2021-10-19 09:16 | CCD ---
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 Name Role Phone Fish, B Geoff TERAN [...] B Geoff TERAN Unavailable Unavailable Fish, B Goeff TERAN Unavailable Unavailable Fish, B Geoff TERAN [...] Fish, B Geoff TERAN Unavailable Unavailable [place], [place] Rosa Maria PA-C Unavailable Unavailabl e Petrancosta, [place] Rosa Maria PA-C Unavailable Unavailabl e Petrancosta, [place] Rosa Maria PA-C Unavailable Unavailabl e Petrancosta, [place] Rosa Maria PA-C Unavailable Unavailabl e Petrancosta, [place] Rosa Maria PA-C Unavailable Unavailabl e Petrancosta, [place] Rosa Maria PA-C Unavailable Unavailabl e Petrancosta, [place] Rosa Maria PA-C Unavailable Unavailabl e Petrancosta, [place] Rosa Maria PA-C Unavailable Unavailabl e Petrancosta, [place] Rosa Maira PA-C Unavailable Unavailabl e Petrancosta, [place] Rosa Maria PA-C Unavailable Unavailabl e Petrancosta, [place] Rosa Maria PA-C Unavailable Unavailabl e Petrancosta, [place] Rosa Maria PA-C Unavailable Unavailabl e Petrancosta, [place] Rosa Maria PA-C Unavailable Unavailabl e Petrancosta, [place] Rosa Maria PA-C Unavailable Unavailabl e Petrancosta, [place] Rosa Maria PA-C Unavailable Unavailabl e Petrancosta, [place] Rosa Maria PA-C Unavailable Unavailabl e Petrancosta, [place] Rosa Maria PA-C Unavailable Unavailabl e Petrancosta, [place] Rosa Maria PA-C Unavailable Unavailabl e Petrancosta, [place] Rosa Maria PA-C Unavailable Unavailabl e Petrancosta, [place] Rosa Maria PA-C Unavailable Unavailabl e Petrancosta, [place] Rosa Maria PA-C Unavailable Unavailabl e Petrancosta, [place] Rosa Maria PA-C Unavailable Unavailabl e Petrancosta, [place] Rosa Maria PA-C Unavailable Unavailabl e Petrancosta, [place] Rosa Maria PA-C Unavailable Unavailabl e Petrancosta, [place] Rosa Maria PA-C Unavailable Unavailabl e Yasir, [...] Yasir, Gina Townsend MD Unavailable Unavailable Yasir, Gian Townsend MD Unavailable Unavailable Yasir, A Cary [...] is protected by Article 27-F of the [place] State Public Health law. If you continue you may have access to information: Regarding HIV / AIDS; Provided by facilities licensed or operated by the [facility] Office of Mental Health; or Provided by the [facility] Office for People With Developmental Disabilities. If such information is present, then the following [facility] mandated warning applies: This information has [...] law may result in a fine or fpc sentence or both. A general authorization for the release of medical or other information is NOT sufficient authorization for further disc losure. Family History Family Member Name Family Member Gender Family Member Status Date o f Status Description Data Source(s) Unknown Female Problem MEDENT ([facility] ) Unknown Female Problem MEDENT ([facility] ) Unknown Unknown Problem MEDENT ([facility] ) Unknown Female Problem [facility] ([facility] Unknown Female Problem MEDENT ([facility] Goddard [facility] ) Encounters Encounter Providers Location Date Indications Data Source(s ) Unknown [address] [facility] [id number] 10/06/2021 12:00:00 AM EST eCW1 ([facility]) Outpatient Attender: Cary Cooley MD Main Office 10/03/2021 08:00:0 0 AM EST MEDENT ([facility] Outpatient [address] [facility] [id number] 09/29/2021 12:00:00 AM EST eCW1 ([facility]) Unknown [address] [facility] [place] [address] 09/29/2021 12:00:00 AM EST eCW1 ([facility]) Outpatient [address] [facility] [place] [address] 09/13/2021 12:00:00 AM EDT eCW1 ([facility]) Outpatient Attender: Geoff Renteria MD Physical Therapy 07/19/2021 0 1:30:00 PM EDT MEDENT ([facility]) Outpatient Attender: Cary Cooley MD Main Office 05/05/2021 10:45:0 0 AM EDT MED[facility] ([facility] [place] [address] [facility] [place] [address] 04/24/2021 12:00:00 AM EDT eCW1 ([facility]) Outpatient Attender: Geoff Renteria MD Physical Therapy 04/03/2021 0 9:30:00 AM EDT MEDENT ([facility]) [place] [address] [facility] [place] [address] 10/27/2020 12:00:00 AM EST eCW1 ([facility]) Outpatient Attender: Rosa Maria Barragan PA-C Main Office 10/06/2020 09:00:00 AM EST MEDENT ([facility] Immunizations Vaccine Date Status Description Data Source(s) COVID-19 VACCINE Moderna 09/15/2021 12:00:00 AM EDT completed NYSIIS Vaccine Series Complete: YESThis Data wa s Submitted to [facility] Via [employer]. Moderna Sars-(Covid-19) vaccine, mRNA, LNP-S, PF, 100 mcg/ 0.5 mL 02/28/2021 12:00:00 AM EDT completed MEDENT ([facility] COVID-19 VACCINE Moderna 02/28/2021 12:00:00 AM EDT completed [facility]SIIS Vaccine Series Complete: YESThis Data wa s Submitted to [facility] Via [employer]. Moderna Sars-(Covid-19) vaccine, mRNA, LNP-S, PF, 100 mcg/ 0.5 mL 01/31/2021 12:00:00 AM EDT completed [facility] ([facility] COVID-19 VACCINE Moderna 01/31/2021 12:00:00 AM EDT completed NYSIIS Vaccine Series Complete: NOThis Data was Submitted to [facility] Via [employer]. New in 2012. IIV4 08/25/2020 10:04:00 AM [...] 12:00:00 AM EST 1.0 {application} active eCW1 ([facility]) ciclopirox 0.0077 MG/MG Topical Gel Ciclopirox 0.77 % Ciclop irox 0.77 % 09/29/2021 12:00:00 AM EST 1.0 {application} act ciera Ciclopirox 0.77 % eCW1 ([facility]) ciclopirox 0.0077 MG/MG Topical Gel Ciclopirox 0.77 % Ciclop irox 0.77 % 09/29/2021 12:00:00 AM EST 1.0 {application} act ciera Ciclopirox 0.77 % eCW1 ([facility]) Econazole Nitrate 10 MG/ML Topical Cream Econazole Nit rate 1 % Econazole Nitrate 1 % 09/13/2021 12:00:00 AM EDT 1.0 {application} active Econazole Nitrate 1 % eCW1 ([facility]) Griseofulvin 500 MG Oral Tablet Griseofulvin Microsize 500 MG Griseofulvin Microsize 500 MG 09/13/2021 12:00:00 AM EDT 1.0 {tablet_with_a_meal} active Griseofulvin Microsize 500 MG eC W1 ([facility]) Econazole Nitrate 10 MG/ML Topical Cream Econazole Nit rate 1 % Econazole Nitrate 1 % 09/13/2021 12:00:00 AM EDT 1.0 {application} active Econazole Nitrate 1 % eCW1 ([facility]) Econazole Nitrate 10 MG/ML Topical Cream Econazole Nit rate 1 % Econazole Nitrate 1 % 09/13/2021 12:00:00 AM EDT 1.0 {application} active Econazole Nitrate 1 % eCW1 ([facility]) Griseofulvin 500 MG Oral Tablet Griseofulvin Microsize 500 MG Griseofulvin Microsize 500 MG 09/13/2021 12:00:00 AM EDT 1.0 {tablet_with_a_meal} active eCW1 ([facility]) Griseofulvin 500 MG Oral Tablet Griseofulvin Microsize 500 MG Griseofulvin Microsize 500 MG 09/13/2021 12:00:00 AM EDT 1.0 {tablet_with_a_meal} active Griseofulvin Microsize 500 MG eC W1 ([facility]) Econazole Nitrate 10 MG/ML Topical Cream Econazole Nit rate 1 % Econazole Nitrate 1 % 09/13/2021 12:00:00 AM EDT 1.0 {application} activ e eCW1 ([facility]) Griseofulvin 500 MG Oral Tablet Griseofulvin Microsize 500 MG Griseofulvin Microsize 500 MG 09/13/2021 12:00:00 AM EDT 1.0 {tablet_with_a_meal} active Griseofulvin Microsize 500 MG eC W1 ([facility]) Insurance Providers Payer name Policy type / Coverage type Policy ID Covered democrat ID Covered democrat's relationship to paulson Policy Paulson Plan Information Acc/Dol ([employer]) () Workers Compensation [id number] Self [id number] Acc/[employer]ol ([place] [employer] () Workers Compensation [id number] Self [id number] Acc/[employer]ol ([place] () Workers Compensation [id number] Self Acc/[employer]ol ([place]) () Workers Compensation [id number] Self [id number] Acc/Dol ([place] [employer]) (WC) Workers Compensation [id number] Self 0 [id number] [place] [employer] Commercial [id number] Self [facility] EMPLOYEE PROGRAM [id number] SP [id number] [employer] [id number] SP [id number] BS Fed Plan Medigap Part B [id number] Self [id number] BS Fed Plan Commercial [id number] Self BS Fed Plan Medigap Part B [id number] Self [id number] BS Fed Plan Medigap Part B [id number] Self [id number] BS Fed Plan Medigap Part B [id number] Self [id number] ANSI-Commercial [id number] ANSI-Commercial [id number] [facility] [place] [employer] B [id number] S [id number] ANSI-Commercial [id number] [facility] Health Maintenance Organization (HMO) [id number] Self [id number] ANSI-Commercial [id number] ANSI-Commercial [id number] ANSI-Commercial [id number] ANSI-Commercial [id number] ANSI-Commercial [id number] BS [facility] Health Maintenance Organization (O) [id number] Self [id number] ANSI-Commercial [id number] BS [facility] Health Maintenance Organization (O) [id number] Self [id number] BS [facility] Health Maintenance Organization (O) [id number] Self [id number] [facility] Health Maintenance Organization (O) [id number] Self BS [facility] Health Maintenance Organization (O) [id number] S elf BC/BS (Federal) Commercial [id number] Self BC BS [place] [employer] B [id number] S [id number] [facility] [id number] S [id number] MEDICARE [id number] SP [id number] [facility] [place] [employer] [id number] SP [id number] GEHA-ASA [id number] SP [id number] 2GEHA GEHA-ASA [id number] SP [id number] GEHA-ASA [id number] SP [id number] 2GEHA GEHA-ASA [id number] SP [id number] 2GEHA SELF PAY ONLY [facility] FEDERAL EMPLOYEE PROGRAM [id number] SP [id number] [facility] [id number] SP [id number] ANSI-Commercial [id number] [facility] FEDERAL EMPLOYEE PROGRAM [id number] SP [id number] MEDICARE [id number] SP [id number] A ANSI-Commercial [id number] ANSI-Commercial [id number] Problems, Conditions, and Diagnoses Code Display Name Description Problem Type Effective Dates Data Source(s) B35.4 05086906 Tinea corporis Problem 09/15/2021 12:00:00 A M EDT eCW1 ([facility]) 952450280 History of malignant neoplasm of prostat e [...] MAJOR JT/BURSA 021 12:00:00 AM EDT MEDENT ([facility] ) OFFICE OUTPATIENT VISIT 25 MINUTES 07/19/2021 12:00:00 AM EDT MEDENT ([facility] ) OFFICE OUTPATIENT VISIT 25 MINUTES 05/05/2021 12:00:00 AM EDT MED[facility] ([facility] X-Ray Hip Unilateral With Pelvis 2-3 Views 04/03/2021 12:00:00 AM EDT MEDENT ([facility] ) OFFICE OUTPATIENT VISIT 25 MINUTES 04/03/2021 12:00:00 AM EDT MEDENT ([facility]) Results ID Date Data Source [id number] 09/18/2021 10:06:00 AM EDT MED[facility] ([facility] Name Value Range Interpretation Code Description Data Stefani rce(s) Supporting Document(s) Glucose, Fasting 107 mg/dL 70-100 MED[facility] ([facility] Creatinine For GFR 0.75 [...] Little GFR Left</content>
<content>ESRD GFR <15 on JOB TRACER</content>
<content></content> Sodium Level 138 meq/L 136-145 MEDENT [...] [facility] ID Date Data Source [id number] 09/18/2021 10:06:00 AM EDT MEDENT ([facility] Name Value Range Interpretation Code Description Data Stefani rce(s) Supporting Document(s) White Blood Count 7.5 10 4.0-10.0 MED[facility] ([facility] Red Blood Count 5.32 10 4.30-6.10 MED[facility] ([facility] Hematocrit 47.2 % 42.0-52.0 MED[facility] ([facility] Hemoglobin 15.8 g/dL 13.5-17.5 MED[facility] ([facility] Mean Corpuscular Hemoglobin 29.7 pg [...] % 24.0-44.0 MED[facility] ([facility] [place] % 8.4 % 2.0-8.0 MEDENT (Cary lara [...] 10 1.5-5.0 [facility] ([facility] [place] # 0.6 10 0.0-0.8 MED[facility] ([facility] Baso # 0.0 10 0.0-0.2 [facility] ([facility] Eos # 0.2 10 0.0-0.5 MED[facility] ([facility] ID Date Data Source [id number] 10/03/2020 11:25:00 AM EST MEDENT ([facility] Name Value Range Interpretation Code Description Data [facility](s) Supporting Document(s) Urate [Mass/volume] in Serum or Plasma 3.5 mg/dL 3.5-7.2 MED[facility] ([facility] ID Date Data Source [id number] 10/03/2020 11:25:00 AM EST MED[facility] ([facility] Name Value Range Interpretation Code Description Data [facility](s) Supporting Document(s) Blood Urea Nitrogen 10 mg/dL [...] Little GFR Left</content>
<content>ESRD GFR <15 on JOB TRACER</content>
<content></content> Anion Gap 5 meq/L 8-16 MEDENT [...] [facility] ID Date Data Source [id number] 10/03/2020 11:25:00 AM EST MEDENT ([facility] [...] EST Former Smoker completed Former Smoker eCW1 ([facility]) Smoking 09/29/2021 12:00:00 AM EST Former Smoker completed Former Smoker eCW1 ([facility]) Smoking 09/29/2021 12:00:00 AM EST Former Smoker completed Former Smoker eCW1 ([facility]) Smoking 09/13/2021 12:00:00 AM EDT Former Smoker completed Former Smoker eCW1 ([facility]) Smoking 10/27/2020 12:00:00 AM EST Former Smoker completed Former Smoker eCW1 ([facility]) Smoking 10/27/2020 12:00:00 AM EST Former Smoker completed Former Smoker eCW1 ([facility]) Vital Signs ID Date Data Source [...] 98 % MED[facility] ([facility] [place] body weight 184 [lb_av] 184 [lb_av] MEDEN T ([facility] Body mass index (BMI) [Ratio] 32.5 kg/m2 32.5 k g/m2 MED[facility] ([facility] Body weight 246.8 [lb_av] 246.8 [lb_av] [facility] ([facility], [facility]) Body weight 111.95 kg 111.95 kg [facility] ([facility]) Body height 73 [in_i] 73 [in_i] eCW1 ([facility]) Body mass index (BMI) [Ratio] 32.56 kg/m2 32.56 kg/m2 [facility] ([facility]) Systolic blood pressure 136 mm[Hg] 136 mm[Hg] e CW1 ([facility]) Diastolic blood pressure 76 mm[Hg] 76 mm[Hg] eCW1 ([facility]) Body weight 245.6 [lb_av] 245.6 [lb_av] eCW1 ([facility], [facility]) Body weight 111.4 kg 111.4 kg eCW1 ([facility]) Body height 73 [in_i] 73 [in_i] eCW1 ([facility]) Body mass index (BMI) [Ratio] 32.40 kg/m2 32.40 kg/m2 W1 ([facility]) Systolic blood pressure 140 mm[Hg] 140 mm[Hg] e CW1 ([facility]) Diastolic blood pressure 80 mm[Hg] 80 mm[Hg] eCW1 ([facility]) Systolic blood pressure 139 mm[Hg] 139 [...] 98 % [facility] ([facility] [place] body weight 184 [lb_av] 184 [lb_av] MEDEN T ([facility] Body mass index (BMI) [Ratio] 33.8 kg/m2 33.8 k g/m2 [facility] ([facility] Body temperature 97.3 [degF] 97.3 [degF] MEDENT ([facility] ) Body height 74.5 [in_i] 74.5 [in_i] MEDENT ([facility] 6'2.50" Body weight 254.00 [lb_av] 254.00 [lb_av] MEDEN T ([facility] ) Body mass index (BMI) [Ratio] 32.2 kg/m2 32.2 k g/m2 MEDENT ([facility] ) Body weight 253 [lb_av] 253 [lb_av] eCW1 ([facility]) Body height 73 [in_i] 73 [in_i] eCW1 ([facility]) Body mass index (BMI) [Ratio] 33.38 kg/m2 33.38 kg/m2 eCW1 ([facility]) Heart rate 60 /min 60 /min eCW1 ([facility]) Respiratory rate 18 /min 18 /min eCW1 ([facility]) Body temperature 95.5 [degF] 95.5 [degF] eCW1 ( [facility]) Systolic blood pressure 140 mm[Hg] 140 mm[Hg] e CW1 ([facility]) Diastolic blood pressure 84 mm[Hg] 84 mm[Hg] eCW1 ([facility]) Heart rate 61 /min 61 /min [...] 98 % MED[facility] ([facility] [place] body weight 184 [lb_av] 184 [lb_av] MEDEN T ([facility] Body mass index (BMI) [Ratio] 33.3 kg/m2 33.3 k g/m2 MED[facility] ([facility] Body temperature 97.3 [degF] 97.3 [degF] MEDENT ([facility] Patient Treatment Plan of Care Planned Activity Planned Date Details Description Data Source (s) ciclopirox 0.0077 MG/MG Topical Gel 09/29/2021 12:00:00 AM EST eCW1 ([facility]) ciclopirox 0.0077 MG/MG Topical Gel 09/29/2021 12:00:00 AM EST eCW1 ([facility]) ciclopirox 0.0077 MG/MG Topical Gel 09/29/2021 12:00:00 AM EST eCW1 ([facility]) Griseofulvin 500 MG Oral Tablet 09/13/2021 12:00:00 AM EDT eCW1 ([facility]) Econazole Nitrate 10 MG/ML Topical Cream 09/13/2021 12:00:00 AM EDT eCW1 ([facility]) Econazole Nitrate 10 MG/ML Topical Cream 09/13/2021 12:00:00 AM EDT eCW1 ([facility]) Griseofulvin 500 MG Oral Tablet 09/13/2021 12:00:00 AM EDT eCW1 ([facility])
--- NOTE | 2021-10-19 10:05 | REP ---
INDICATION: ache R lower leg, known DVT LLE COMPARISON: None. TECHNIQUE: Parra scale and color Doppler evaluation using linear high frequency transducer. FINDINGS: Ultrasound examination of the right lower extremity deep venous structures from the common femoral vein through the popliteal vein and posterior tibial vein/tibioperoneal trunk demonstrates normal compressibility, flow and wave patterns in response to respiration and augmentation without evidence for deep venous thrombosis. There appears to be a small nonocclusive and likely chronic thrombus in the right peroneal vein and gastrocnemius vein. Contralateral CFV is patent and normal. IMPRESSION: No evidence for acute deep venous thrombosis of the right lower extremity. There is suspected chronic nonocclusive thrombus in the right peroneal vein and gastrocnemius vein at the calf. <Electronically signed by Adal Mendosa > 10/19/21 1002
[2021-10-19] MEDS ORDERED: NS 1,000 ML IV ONE (10:35)
[2021-10-19 10:56] LABS: BASO # 0.1 10^3/uL (0.0-0.2); EOS # 0.1 10^3/uL (0.0-0.5); EOS % 2.4 % (0.0-3.0); HEMOGLOBIN 16.5 g/dl (13.5-17.5); LYMPH # 1.1 10^3/uL (1.5-5.0); LYMPH % 22.5 % (24.0-44.0); MEAN CORPUSCULAR HEMOGLOBIN 29.6 pg (27.0-33.0); MEAN CORPUSCULAR VOLUME 89.8 fl (80.0-96.0); MONO # 0.4 10^3/uL (0.0-0.8); MONO % 7.9 % (2.0-8.0); NEUTROPHILS # 3.2 10^3/uL (1.5-8.5); NEUTROPHILS % 65.8 % (36.0-66.0); PLATELET COUNT, AUTOMATED 166 10^3/uL (150-450); RED BLOOD COUNT 5.57 10^6/uL (4.30-6.10); WHITE BLOOD COUNT 4.9 10^3/uL (4.0-10.0)
[2021-10-19 12:19] LABS: INR 1.1; PROTHROMBIN TIME 14.7 SECONDS (12.7-14.5)
[2021-10-19 12:20] LABS: PARTIAL THROMBOPLASTIN TIME 34.3 SECONDS (25.9-37.0)
[2021-10-19 13:10] VITALS: BP 171/96
== END 2021-10-19 13:12 | disposition home or self-care (01) ==
LOC: M ED 07:07
DX: I82.501 Chronic embolism and thrombosis of unspecified deep veins of right lower extremity (principal); M79.604 Pain in right leg; I10 Essential (primary) hypertension; F17.200 Nicotine dependence, unspecified, uncomplicated; Z79.01 Long term (current) use of anticoagulants; Z79.899 Other long term (current) drug therapy

== ENCOUNTER → 2021-10-23 | Outpatient (REF) | payer OTHER ==
[~2021-10-23] MED LIST changes: +CICL8SOL3; +ECON1CRE8; +GRIS1TAB
== END ==
LOC: M SFHCADAM 10:05
PROVIDERS: ATTEND Urology
DX: C61 Malignant neoplasm of prostate (principal)

== ENCOUNTER → 2021-11-29 | Outpatient (REF) | payer OTHER ==
[2021-11-29 13:48] LABS: CHOLESTEROL RISK RATIO 4.708 (<5)
== END ==
LOC: M LABDRWAD 12:19
PROVIDERS: ATTEND Family Medicine
DX: E78.2 Mixed hyperlipidemia (principal)

== ENCOUNTER → 2022-04-24 | Outpatient (CLI) | payer OTHER ==
[~2022-04-24] MED LIST changes: +CICL6.6S; -CICL8SOL3
[2022-04-24 12:46] LABS: BASO % 0.4 % (0.0-1.0); EOS # 0.3 10^3/uL (0.0-0.5); EOS % 4.2 % (0.0-3.0); HEMATOCRIT 45.9 % (42.0-52.0); LYMPH # 1.4 10^3/uL (1.5-5.0); LYMPH % 21.1 % (24.0-44.0); MEAN CORPUSCULAR HGB CONC 32.7 g/dl (32.0-36.5); MEAN CORPUSCULAR VOLUME 91.8 fl (80.0-96.0); MONO # 0.5 10^3/uL (0.0-0.8); MONO % 7.9 % (2.0-8.0); NEUTROPHILS # 4.5 10^3/uL (1.5-8.5); NEUTROPHILS % 66.3 % (36.0-66.0); PLATELET COUNT, AUTOMATED 188 10^3/uL (150-450); WHITE BLOOD COUNT 6.7 10^3/uL (4.0-10.0)
[2022-04-24 13:16] LABS: ALBUMIN 3.6 GM/DL (3.2-5.2); ALT/SGPT 33 U/L (12-78); BILIRUBIN,TOTAL 0.7 MG/DL (0.2-1.0); BLOOD UREA NITROGEN 9 MG/DL (7-18); CALCIUM LEVEL 8.8 MG/DL (8.5-10.1); CARBON DIOXIDE LEVEL 27 MEQ/L (21-32); CHLORIDE LEVEL 110 MEQ/L (98-107); CHOLESTEROL LEVEL 155 MG/DL (<200); CHOLESTEROL RISK RATIO 2.924 (<5); CREATININE FOR GFR 0.95 MG/DL (0.70-1.30); GLOMERULAR FILTRATION RATE > 60.0 (>56); GLUCOSE, FASTING 106 MG/DL (70-100); HDL CHOLESTEROL 53 MG/DL (>40); HEMOGLOBIN A1c 5.4 %; LDL CHOLESTEROL 65 MG/DL (<100); NON-HDL-C 102 MG/DL; POTASSIUM SERUM 4.3 MEQ/L (3.5-5.1); SODIUM LEVEL 141 MEQ/L (136-145); TOTAL PROTEIN 6.4 GM/DL (6.4-8.2); TRIGLYCERIDES LEVEL 186 MG/DL (<150); URIC ACID 4.1 MG/DL (3.5-7.2)
== END ==
LOC: M ADAMS 09:34
PROVIDERS: ATTEND Family Medicine
DX: I10 Essential (primary) hypertension (principal); R73.03 Prediabetes; M10.9 Gout, unspecified

== ENCOUNTER → 2022-04-24 | Outpatient (REF) | payer OTHER | LOC: M SFHCADAM 09:33 | PROVIDERS: ATTEND Urology | DX: C61 Malignant neoplasm of prostate (principal) ==

== ENCOUNTER → 2022-10-25 | Outpatient (REF) | payer BC | LOC: M SFHCADAM 10:26 | PROVIDERS: ATTEND Urology | DX: C61 Malignant neoplasm of prostate (principal) ==

== ENCOUNTER → 2023-02-22 | Outpatient (CLI) | payer BC, OTHER | LOC: M PLARAD 15:09 | PROVIDERS: ATTEND Internal Medicine | DX: M54.50 Low back pain, unspecified (principal); M47.816 Spondylosis without myelopathy or radiculopathy, lumbar region; M48.061 Spinal stenosis, lumbar region without neurogenic claudication; M43.17 Spondylolisthesis, lumbosacral region ==

== ENCOUNTER → 2023-04-19 | Outpatient (CLI) | payer OTHER | LOC: M SOG 08:05 | PROVIDERS: ATTEND Orthopaedic Surgery | DX: M54.50 Low back pain, unspecified (principal); M47.816 Spondylosis without myelopathy or radiculopathy, lumbar region; I70.0 Atherosclerosis of aorta ==

== ENCOUNTER → 2023-06-03 | Outpatient (REF) | payer BC | LOC: M SFHCADAM 10:54 | PROVIDERS: ATTEND Urology | DX: C61 Malignant neoplasm of prostate (principal) ==

== ENCOUNTER → 2023-12-09 | Outpatient (REF) | payer BC ==
[~2023-12-09] MED LIST changes: +MECL-209 PO; -MECL1TAB31 PO
[2023-12-09 17:28] LABS: URIC ACID 4.6 MG/DL (3.7-9.2)
[2023-12-09 17:31] LABS: ALBUMIN 3.6 G/DL (3.2-5.2); ALKALINE PHOSPHATASE 67 U/L (46-116); ALT/SGPT 27 U/L (7.0-40); AST/SGOT 18 U/L (<34); BILIRUBIN,TOTAL 0.7 MG/DL (0.3-1.2); BLOOD UREA NITROGEN 11 MG/DL (9-23); CALCIUM LEVEL 9.5 MG/DL (8.3-10.6); CARBON DIOXIDE LEVEL 32 MMOL/L (20-31); CHLORIDE LEVEL 105 MMOL/L (98-107); CHOLESTEROL LEVEL 166 MG/DL (<200); CHOLESTEROL RISK RATIO 2.97 (<5); CREATININE FOR GFR 0.74 MG/DL (0.70-1.30); GLOMERULAR FILTRATION RATE > 60.0 (>49); GLUCOSE, FASTING 139 MG/DL (74-106); HDL CHOLESTEROL 55.8 MG/DL (>40); LDL CHOLESTEROL 79.6 MG/DL (<100); NON-HDL-C 110.2 MG/DL; POTASSIUM SERUM 4.7 MMOL/L (3.5-5.1); SODIUM LEVEL 142 MMOL/L (136-145); TOTAL PROTEIN 6.5 G/DL (5.7-8.2); TRIGLYCERIDES LEVEL 153 MG/DL (<150)
[2023-12-09 17:34] LABS: BASO % 0.6 % (0.0-1.0); EOS # 0.2 10^3/uL (0.0-0.5); EOS % 3.5 % (0.0-3.0); HEMATOCRIT 47.8 % (42.0-52.0); HEMOGLOBIN 15.4 g/dl (13.5-17.5); LYMPH # 1.5 10^3/uL (1.5-5.0); LYMPH % 22.8 % (24.0-44.0); MEAN CORPUSCULAR HEMOGLOBIN 29.7 pg (27.0-33.0); MEAN CORPUSCULAR HGB CONC 32.2 g/dl (32.0-36.5); MEAN CORPUSCULAR VOLUME 92.1 fl (80.0-96.0); MONO # 0.5 10^3/uL (0.0-0.8); MONO % 7.4 % (2.0-8.0); NEUTROPHILS # 4.3 10^3/uL (1.5-8.5); NEUTROPHILS % 65.4 % (36.0-66.0); PLATELET COUNT, AUTOMATED 239 10^3/uL (150-450); RED BLOOD COUNT 5.19 10^6/uL (4.30-6.10); WHITE BLOOD COUNT 6.6 10^3/uL (4.0-10.0)
[2023-12-09 17:55] LABS: HEMOGLOBIN A1c 5.2 % (4.0-6.0)
== END ==
LOC: M LABDRWAD 16:27
PROVIDERS: ATTEND Nurse Practitioner Family
DX: I10 Essential (primary) hypertension (principal); R73.03 Prediabetes; M10.9 Gout, unspecified

== ENCOUNTER → 2023-12-09 | Outpatient (REF) | payer BC | LOC: M SFHCADAM 12:37 | PROVIDERS: ATTEND Urology | DX: C61 Malignant neoplasm of prostate (principal) ==

== ENCOUNTER → 2024-01-13 | Outpatient (REF) | payer BC ==
[2024-01-13 14:29] LABS: BASO % 0.4 % (0.0-1.0); EOS # 0.3 10^3/uL (0.0-0.5); EOS % 2.9 % (0.0-3.0); HEMATOCRIT 48.5 % (42.0-52.0); HEMOGLOBIN 15.8 g/dl (13.5-17.5); LYMPH # 1.8 10^3/uL (1.5-5.0); LYMPH % 18.4 % (24.0-44.0); MEAN CORPUSCULAR HEMOGLOBIN 29.2 pg (27.0-33.0); MEAN CORPUSCULAR HGB CONC 32.6 g/dl (32.0-36.5); MEAN CORPUSCULAR VOLUME 89.5 fl (80.0-96.0); MONO # 0.9 10^3/uL (0.0-0.8); MONO % 8.9 % (2.0-8.0); NEUTROPHILS # 6.5 10^3/uL (1.5-8.5); NEUTROPHILS % 68.8 % (36.0-66.0); PLATELET COUNT, AUTOMATED 264 10^3/uL (150-450); RED BLOOD COUNT 5.42 10^6/uL (4.30-6.10); WHITE BLOOD COUNT 9.5 10^3/uL (4.0-10.0)
[2024-01-13 14:38] LABS: ERYTHROCYTE SEDIMENTATION RATE 40 mm/hr (0-20)
[2024-01-13 15:03] LABS: ALBUMIN 3.4 G/DL (3.2-5.2); ALKALINE PHOSPHATASE 102 U/L (46-116); ALT/SGPT 29 U/L (7.0-40); AST/SGOT 17 U/L (<34); BLOOD UREA NITROGEN 11 MG/DL (9-23); CALCIUM LEVEL 9.2 MG/DL (8.3-10.6); CARBON DIOXIDE LEVEL 32 MMOL/L (20-31); CHLORIDE LEVEL 105 MMOL/L (98-107); CREATININE FOR GFR 0.82 MG/DL (0.70-1.30); FREE T4 1.15 NG/DL (0.89-1.76); GLOMERULAR FILTRATION RATE > 60.0 (>49); GLUCOSE, FASTING 93 MG/DL (74-106); MAGNESIUM LEVEL 2.1 MG/DL (1.8-2.4); POTASSIUM SERUM 4.4 MMOL/L (3.5-5.1); SODIUM LEVEL 136 MMOL/L (136-145); THYROID STIMULATING HORMONE 1.852 uIU/ML (0.55-4.78); TOTAL PROTEIN 6.5 G/DL (5.7-8.2)
[2024-01-13 15:05] LABS: FOLATE 22.5 NG/ML (>5.4); TOTAL 25(OH) VITAMIN D 36.7 NG/ML (20.0-100.0); VITAMIN B12 LEVEL 558 PG/ML (211-911)
== END ==
LOC: M LABDRWAD 13:14
PROVIDERS: ATTEND Nurse Practitioner Family
DX: R51.9 Headache, unspecified (principal)

== ENCOUNTER → 2024-01-17 | Outpatient (CLI) | payer BC | LOC: M RAD 07:12 | PROVIDERS: ATTEND Nurse Practitioner Family | DX: R51.9 Headache, unspecified (principal) ==

== ENCOUNTER 2024-03-02 08:21 | Emergency (ER) | payer BC ==
[~2024-03-02] VITALS: Ht 188 cm; Wt 102.9 kg
[~2024-03-02 08:21] MED LIST changes: +METO200T15; -METO200T28
[2024-03-02] MEDS ORDERED: EZET10TA21 PO (12:50)
[2024-03-02] MEDS ORDERED: RAMI1CAP22 PO (12:50)
[2024-03-02] MEDS ORDERED: LEXA1TAB PO (12:51)
[2024-03-02] MEDS ORDERED: TRAM50TA2 PO (12:53)
[2024-03-02] MEDS: LIDOCAINE 5% (LIDODERM) PATCH TD ONE (12:55)
[2024-03-02] MEDS: KETOROLAC 30 MG/ML 1ML VIAL IM ONE (13:42)
[2024-03-02] MEDS ORDERED: HYDR-3713 PO (14:10)
[2024-03-02 14:27] VITALS: BP 139/64; TEMP 98.2; O2SAT 96
== END 2024-03-02 14:29 | disposition home or self-care (01) ==
LOC: M ED 08:21
DX: M54.32 Sciatica, left side (principal); M51.37 Other intervertebral disc degeneration, lumbosacral region; M47.816 Spondylosis without myelopathy or radiculopathy, lumbar region; K76.0 Fatty (change of) liver, not elsewhere classified; F90.0 Attention-deficit hyperactivity disorder, predominantly inattentive type; Z79.899 Other long term (current) drug therapy; Z79.891 Long term (current) use of opiate analgesic
CPT/HCPCS: 96372; 99283; J1885

== ENCOUNTER → 2024-03-06 | Outpatient (CLI) | payer BC ==
[~2024-03-06] MED LIST changes: +EZET10TA21 PO; +HYDR-3713 PO; +LEXA1TAB PO; +RAMI1CAP22 PO; +TRAM50TA2 PO
== END ==
LOC: M PLAIMG 08:27
PROVIDERS: ATTEND Nurse Practitioner Family
DX: M25.512 Pain in left shoulder (principal); M85.812 Other specified disorders of bone density and structure, left shoulder

== ENCOUNTER 2024-04-11 08:24 | Emergency (ER) | payer BC ==
[~2024-04-11] VITALS: Ht 188 cm; Wt 92.9 kg
[~2024-04-11 08:24] MED LIST changes: -METO200T15; +METO200T15 PO; -RAMI1CAP22 PO; +RAMI2.5C42 PO
[2024-04-11] MEDS ORDERED: METH4TAB8 PO (09:23)
[2024-04-11] MEDS ORDERED: OXYC-517 PO (09:23)
[2024-04-11] MEDS ORDERED: ROSU40TA63 PO (09:23)
[2024-04-11] MEDS ORDERED: METH-1165 PO (09:23)
[2024-04-11] MEDS ORDERED: VITA100093 PO (09:23)
[2024-04-11] MEDS: PANTOPRAZOLE 40MG VIAL IV ONE (09:32)
[2024-04-11] MEDS: NS 1,000 ML IV ONE (09:32)
[2024-04-11] MEDS ORDERED: ISOVUE-370 76% 100ML VIAL As Ordered ONE (09:43)
[2024-04-11 10:00] LABS: BASO % 0.1 % (0.0-1.0); HEMOGLOBIN 13.6 g/dl (13.5-17.5); LYMPH # 0.9 10^3/uL (1.5-5.0); LYMPH % 6.3 % (24.0-44.0); MEAN CORPUSCULAR HEMOGLOBIN 28.6 pg (27.0-33.0); MEAN CORPUSCULAR HGB CONC 33.2 g/dl (32.0-36.5); MEAN CORPUSCULAR VOLUME 86.3 fl (80.0-96.0); MONO % 7.4 % (2.0-8.0); NEUTROPHILS # 11.7 10^3/uL (1.5-8.5); NEUTROPHILS % 85.3 % (36.0-66.0); PLATELET COUNT, AUTOMATED 269 10^3/uL (150-450); RED BLOOD COUNT 4.75 10^6/uL (4.30-6.10); WHITE BLOOD COUNT 13.7 10^3/uL (4.0-10.0)
[2024-04-11 10:22] LABS: ALBUMIN 2.9 G/DL (3.2-5.2); BILIRUBIN,DIRECT 0.4 MG/DL (<0.4); BILIRUBIN,TOTAL 1.2 MG/DL (0.3-1.2); TOTAL PROTEIN 6.1 G/DL (5.7-8.2)
[2024-04-11 10:23] LABS: INR 1.14; PARTIAL THROMBOPLASTIN TIME 28.2 SECONDS (24.8-34.2); PROTHROMBIN TIME 14.2 SECONDS (12.5-14.5)
[2024-04-11] MEDS: KETOROLAC 30 MG/ML 1ML VIAL IV ONE (10:46)
[2024-04-11] MEDS: SUCRALFATE 1 GM TAB PO ONE (10:47)
[2024-04-11] MEDS ORDERED: MED REC IN PROGRESS XX SCH (11:40)
[2024-04-11] MEDS ORDERED: PROHANCE 279.3MG/ML 15ML VIAL As Ordered ONE (11:42)
[2024-04-11] MEDS ORDERED: PROHANCE 279.3MG/ML 5ML VIAL As Ordered ONE (11:42)
[2024-04-11] MEDS: HYDROMORPHONE HCL 0.5 MG/ 0.5 ML SYRINGE IV PRN (13:27)
[2024-04-11] MEDS ORDERED: COQ1200C3 PO (14:13)
[2024-04-11] MEDS ORDERED: THERTAB52 PO (14:13)
[2024-04-11] MEDS ORDERED: HOME MED LIST COMPLETE! XX SCH (14:15)
[2024-04-11 14:34] VITALS: BP 123/64; TEMP 98.2; O2SAT 96
[2024-04-11] MEDS ORDERED: HYDR-3713 PO (14:51)
[2024-04-11] MEDS ORDERED: PROT1TAB2 PO (14:51)
[2024-04-11] MEDS ORDERED: ONDA4TAB6 PO (14:51)
== END 2024-04-11 15:10 | disposition home or self-care (01) ==
LOC: M ED 08:24
DX: M85.88 Other specified disorders of bone density and structure, other site (principal); R63.4 Abnormal weight loss; K76.0 Fatty (change of) liver, not elsewhere classified; M54.9 Dorsalgia, unspecified; M48.00 Spinal stenosis, site unspecified; M43.17 Spondylolisthesis, lumbosacral region; Z85.46 Personal history of malignant neoplasm of prostate; Z79.899 Other long term (current) drug therapy
CPT/HCPCS: 72158; 74177; 80047; 80076; 83690; 85025; 85610; 85730; 96374; 96375; 99284; A9576; C9113; J1170; J1885; Q9967

== ENCOUNTER 2024-04-12 04:03 | Emergency (ER) | payer BC ==
[~2024-04-12] VITALS: Ht 188 cm; Wt 92.7 kg
[~2024-04-12 04:03] MED LIST changes: +COQ1200C3 PO; +METH-1165 PO; +METH4TAB8 PO; +ONDA4TAB6 PO; +OXYC-517 PO; +PROT1TAB2 PO; +ROSU40TA63 PO; +THERTAB52 PO; +VITA100093 PO
[2024-04-12] MEDS: MORPHINE 4 MG/ML 1ML VIAL IV ONE (04:42)
[2024-04-12] MEDS: ONDANSETRON 4MG 2ML VIAL IV ONE (04:44)
[2024-04-12 04:54] LABS: BASO % 0.1 % (0.0-1.0); EOS % 0.2 % (0.0-3.0); HEMATOCRIT 37.4 % (42.0-52.0); HEMOGLOBIN 12.4 g/dl (13.5-17.5); LYMPH # 1.2 10^3/uL (1.5-5.0); LYMPH % 10.8 % (24.0-44.0); MEAN CORPUSCULAR HEMOGLOBIN 28.4 pg (27.0-33.0); MEAN CORPUSCULAR HGB CONC 33.2 g/dl (32.0-36.5); MEAN CORPUSCULAR VOLUME 85.6 fl (80.0-96.0); MONO # 0.8 10^3/uL (0.0-0.8); MONO % 6.9 % (2.0-8.0); NEUTROPHILS # 9.1 10^3/uL (1.5-8.5); NEUTROPHILS % 81.2 % (36.0-66.0); PLATELET COUNT, AUTOMATED 277 10^3/uL (150-450); RED BLOOD COUNT 4.37 10^6/uL (4.30-6.10); WHITE BLOOD COUNT 11.2 10^3/uL (4.0-10.0)
[2024-04-12 05:26] LABS: ALBUMIN 2.5 G/DL (3.2-5.2); ALKALINE PHOSPHATASE 267 U/L (46-116); ALT/SGPT 12 U/L (7.0-40); AST/SGOT 18 U/L (<34); BILIRUBIN,TOTAL 1.2 MG/DL (0.3-1.2); BLOOD UREA NITROGEN 12 MG/DL (9-23); CALCIUM LEVEL 8.8 MG/DL (8.3-10.6); CARBON DIOXIDE LEVEL 27 MMOL/L (20-31); CHLORIDE LEVEL 100 MMOL/L (98-107); CREATININE FOR GFR 0.69 MG/DL (0.70-1.30); GLOMERULAR FILTRATION RATE > 60.0 (>49); GLUCOSE, FASTING 134 MG/DL (74-106); POTASSIUM SERUM 4.2 MMOL/L (3.5-5.1); SODIUM LEVEL 135 MMOL/L (136-145); TOTAL PROTEIN 5.4 G/DL (5.7-8.2)
[2024-04-12] MEDS: NS 1,000 ML IV SCH (06:34)
[2024-04-12] MEDS: KETOROLAC 30 MG/ML 1ML VIAL IV ONE (06:34)
[2024-04-12 10:33] VITALS: BP 126/67; TEMP 98.7; O2SAT 97
[2024-04-12] MEDS: HYDROMORPHONE HCL 0.5 MG/ 0.5 ML SYRINGE IV ONE (10:49)
== END 2024-04-12 10:47 | disposition short-term general hospital (02) ==
LOC: M ED 04:03
DX: M85.88 Other specified disorders of bone density and structure, other site (principal); G89.4 Chronic pain syndrome; I10 Essential (primary) hypertension; K76.0 Fatty (change of) liver, not elsewhere classified; F41.9 Anxiety disorder, unspecified; F32.A Depression, unspecified; F10.10 Alcohol abuse, uncomplicated; Z79.899 Other long term (current) drug therapy
CPT/HCPCS: 80053; 85025; 86140; 96361; 96374; 96375; 99285; J1170; J1885; J2405

== ENCOUNTER → 2024-05-18 | Outpatient (CLI) | payer BC ==
[~2024-05-18] MED LIST changes: +ACET-683 PO; +CYAN-11 PO; +CYCL-707; +DEXA4TA PO; +DIPH-435 PO; +FOLI1TAB11 PO; +MEMA10TA PO; +MEMA1TAB3 PO; +MS C15TA8 PO; +NAPR220C23 PO; +ONDA-282 PO; -ONDA4TAB6 PO; +OXYC10TA12 PO
[2024-05-18 09:19] LABS: BASO % 0.4 % (0.0-1.0); EOS # 0.1 10^3/uL (0.0-0.5); HEMATOCRIT 32.7 % (42.0-52.0); HEMOGLOBIN 10.5 g/dl (13.5-17.5); LYMPH # 0.6 10^3/uL (1.5-5.0); LYMPH % 9.1 % (24.0-44.0); MEAN CORPUSCULAR HEMOGLOBIN 28.2 pg (27.0-33.0); MEAN CORPUSCULAR HGB CONC 32.1 g/dl (32.0-36.5); MEAN CORPUSCULAR VOLUME 87.7 fl (80.0-96.0); MONO # 0.6 10^3/uL (0.0-0.8); MONO % 8.8 % (2.0-8.0); NEUTROPHILS # 5.3 10^3/uL (1.5-8.5); NEUTROPHILS % 78.3 % (36.0-66.0); PLATELET COUNT, AUTOMATED 225 10^3/uL (150-450); RED BLOOD COUNT 3.73 10^6/uL (4.30-6.10); WHITE BLOOD COUNT 6.8 10^3/uL (4.0-10.0)
[2024-05-18 09:39] LABS: ALBUMIN 2.1 G/DL (3.2-5.2); ALKALINE PHOSPHATASE 519 U/L (46-116); ALT/SGPT 14 U/L (7.0-40); AST/SGOT 38 U/L (<34); BILIRUBIN,TOTAL 1.2 MG/DL (0.3-1.2); BLOOD UREA NITROGEN 17 MG/DL (9-23); CALCIUM LEVEL 8.5 MG/DL (8.3-10.6); CARBON DIOXIDE LEVEL 23 MMOL/L (20-31); CHLORIDE LEVEL 102 MMOL/L (98-107); CREATININE FOR GFR 0.82 MG/DL (0.70-1.30); GLOMERULAR FILTRATION RATE > 60.0 (>49); GLUCOSE, FASTING 167 MG/DL (74-106); POTASSIUM SERUM 4.8 MMOL/L (3.5-5.1); SODIUM LEVEL 136 MMOL/L (136-145); TOTAL PROTEIN 5.7 G/DL (5.7-8.2)
== END ==
LOC: M ONCR 08:00
PROVIDERS: ATTEND General Practice
DX: C34.11 Malignant neoplasm of upper lobe, right bronchus or lung (principal); C79.31 Secondary malignant neoplasm of brain; C79.51 Secondary malignant neoplasm of bone; M25.511 Pain in right shoulder; M25.512 Pain in left shoulder; R53.1 Weakness; Z90.49 Acquired absence of other specified parts of digestive tract; Z87.891 Personal history of nicotine dependence; Z79.899 Other long term (current) drug therapy
CPT/HCPCS: 36415; 80053; 85025; G0463

== ENCOUNTER → 2024-05-28 | Outpatient (CLI) | payer BC ==
[~2024-05-28] MED LIST changes: +ELIQ5TAB PO; +MORP30TASA PO; +OXYC-1 PO; +PANT40TA29 PO
[2024-05-28 10:32] VITALS: BP 127/84; O2SAT 99
== END ==
LOC: M PAL 10:09
PROVIDERS: ATTEND Nurse Practitioner Adult Health
DX: C34.11 Malignant neoplasm of upper lobe, right bronchus or lung (principal); C79.51 Secondary malignant neoplasm of bone; C79.31 Secondary malignant neoplasm of brain; R53.83 Other fatigue; R06.02 Shortness of breath; F41.9 Anxiety disorder, unspecified; F32.A Depression, unspecified; R63.0 Anorexia; G89.3 Neoplasm related pain (acute) (chronic); R41.89 Other symptoms and signs involving cognitive functions and awareness; Z51.5 Encounter for palliative care; Z92.3 Personal history of irradiation; Z92.21 Personal history of antineoplastic chemotherapy; Z90.79 Acquired absence of other genital organ(s); Z79.52 Long term (current) use of systemic steroids; Z79.891 Long term (current) use of opiate analgesic; Z79.899 Other long term (current) drug therapy; Z87.891 Personal history of nicotine dependence

== ENCOUNTER 2024-06-01 12:12 | Outpatient (RCR) | payer BC ==
[~2024-06-01 12:12] MED LIST changes: -ELIQ5TAB PO; -OXYC-1 PO; -PANT40TA29 PO
[2024-06-02] MEDS ORDERED: PROT1TAB2 PO (06:59)
[2024-06-03] MEDS ORDERED: DEXA4TA PO (17:11)
[2024-06-03] MEDS ORDERED: PANT40TA29 PO (17:11)
[2024-06-03] MEDS ORDERED: CYCL-707 PO (17:11)
[2024-06-03] MEDS ORDERED: OXYC-1 PO (17:11)
[2024-06-03] MEDS ORDERED: OXYC10TA12 PO (17:11)
[2024-06-04] MEDS ORDERED: ELIQ5TAB PO (11:56)
== END 2024-06-07 ==
LOC: M ONCR 12:12
PROVIDERS: ATTEND General Practice
DX: Z51.0 Encounter for antineoplastic radiation therapy (principal); C79.51 Secondary malignant neoplasm of bone

== ENCOUNTER 2024-06-03 09:51 | Inpatient (IN) | payer BC ==
[2024-06-03] VITALS (12 sets, daily range): BP systolic 115–123; BP diastolic 69–71; TEMP 96.8; O2SAT 94–99
[~2024-06-03] VITALS: Ht 188 cm; Wt 86.8 kg
[2024-06-03 10:38] LABS: BASO # 0.1 10^3/uL (0.0-0.2); BASO % 0.5 % (0.0-1.0); EOS % 0.1 % (0.0-3.0); HEMATOCRIT 35.9 % (42.0-52.0); HEMOGLOBIN 11.2 g/dl (13.5-17.5); LYMPH # 0.5 10^3/uL (1.5-5.0); LYMPH % 3.4 % (24.0-44.0); MEAN CORPUSCULAR HEMOGLOBIN 28.1 pg (27.0-33.0); MEAN CORPUSCULAR HGB CONC 31.2 g/dl (32.0-36.5); MONO # 0.8 10^3/uL (0.0-0.8); MONO % 5.1 % (2.0-8.0); NEUTROPHILS # 13.1 10^3/uL (1.5-8.5); NEUTROPHILS % 85.6 % (36.0-66.0); PLATELET COUNT, AUTOMATED 103 10^3/uL (150-450); RED BLOOD COUNT 3.99 10^6/uL (4.30-6.10); WHITE BLOOD COUNT 15.3 10^3/uL (4.0-10.0)
[2024-06-03] MEDS: NS 1,000 ML IV ONE (11:06)
[2024-06-03] MEDS: ONDANSETRON 4MG 2ML VIAL IV ONE (11:10)
[2024-06-03 11:11] LABS: ALBUMIN 2.3 G/DL (3.2-5.2); ALKALINE PHOSPHATASE 587 U/L (46-116); ALT/SGPT 23 U/L (7.0-40); AST/SGOT 58 U/L (<34); BILIRUBIN,DIRECT 0.3 MG/DL (<0.4); BILIRUBIN,TOTAL 1.3 MG/DL (0.3-1.2); BLOOD UREA NITROGEN 27 MG/DL (9-23); CALCIUM LEVEL 8.2 MG/DL (8.3-10.6); CARBON DIOXIDE LEVEL 20 MMOL/L (20-31); CHLORIDE LEVEL 104 MMOL/L (98-107); GLOMERULAR FILTRATION RATE > 60.0 (>49); GLUCOSE, FASTING 160 MG/DL (74-106); POTASSIUM SERUM 5.2 MMOL/L (3.5-5.1); SODIUM LEVEL 136 MMOL/L (136-145); TOTAL PROTEIN 5.6 G/DL (5.7-8.2)
[2024-06-03] MEDS ORDERED: ISOVUE-370 76% 100ML VIAL As Ordered ONE (11:38)
[2024-06-03] MEDS: APIXABAN 5 MG TAB (ELIQUIS) PO ONE (13:37)
[2024-06-03] MEDS ORDERED: HEPARIN DRIP 25,000 UNITS in IV 1 EA IV SCH (14:55)
[2024-06-03] MEDS ORDERED: HEPARIN SOD (PORCINE) 5000UNITS/ML 1ML VIAL/SYRINGE IV PRN (14:55)
[2024-06-03] MEDS ORDERED: HEPARIN SOD (PORCINE) 5000UNITS/ML 1ML VIAL/SYRINGE IV ONE (14:55)
[2024-06-03] MEDS ORDERED: ENOXAPARIN 100MG/1ML SYRINGE (J1650 PER 10MG) SC SCH (15:00)
[2024-06-03 16:21] LABS: CREATININE FOR GFR 0.47 MG/DL (0.70-1.30); GLOMERULAR FILTRATION RATE > 60.0 (>49)
[2024-06-03 16:29] LABS: PROCALCITONIN 1.09 ng/ml
[2024-06-03 16:46] LABS: HIV 1&2 SCREEN NEGATIVE (NEGATIVE)
[2024-06-03] MEDS ORDERED: CYCL-707 PO (17:11)
[2024-06-03] MEDS ORDERED: PANT40TA29 PO (17:11)
[2024-06-03] MEDS ORDERED: OXYC10TA12 PO (17:11)
[2024-06-03] MEDS ORDERED: OXYC-1 PO (17:11)
[2024-06-03] MEDS ORDERED: DEXA4TA PO (17:11)
[2024-06-03] MEDS ORDERED: HOME MED LIST COMPLETE! XX SCH (17:15)
[2024-06-03] MEDS ORDERED: MORPHINE 15 MG SA TAB PO SCH (21:00)
[2024-06-03] MEDS: MORPHINE 30 MG SA TAB PO SCH (21:00)
[2024-06-03] MEDS: APIXABAN 5 MG TAB (ELIQUIS) PO SCH (21:00)
[2024-06-03] MEDS ORDERED: APIXABAN 5 MG TAB (ELIQUIS) PO SCH (21:00)
[2024-06-03] MEDS: CYCLOBENZAPRINE 10MG TABLET PO PRN (22:02)
[2024-06-03] MEDS: oxyCODONE 5MG TAB PO PRN (22:02)
[2024-06-04] VITALS (28 sets, daily range): BP systolic 90–119; BP diastolic 58–81; TEMP 97–98; O2SAT 82–98
[2024-06-04] MEDS: KETOROLAC 30 MG/ML 1ML VIAL IV ONE (00:03)
[2024-06-04 06:02] LABS: HEMATOCRIT 30.2 % (42.0-52.0); HEMOGLOBIN 9.6 g/dl (13.5-17.5); MEAN CORPUSCULAR HEMOGLOBIN 28.8 pg (27.0-33.0); MEAN CORPUSCULAR HGB CONC 31.8 g/dl (32.0-36.5); MEAN CORPUSCULAR VOLUME 90.7 fl (80.0-96.0); RED BLOOD COUNT 3.33 10^6/uL (4.30-6.10); WHITE BLOOD COUNT 9.8 10^3/uL (4.0-10.0)
[2024-06-04 06:27] LABS: PLATELET COUNT, AUTOMATED 60 10^3/uL (150-450)
[2024-06-04 06:31] LABS: BLOOD UREA NITROGEN 27 MG/DL (9-23); CALCIUM LEVEL 7.7 MG/DL (8.3-10.6); CARBON DIOXIDE LEVEL 23 MMOL/L (20-31); CHLORIDE LEVEL 106 MMOL/L (98-107); CREATININE FOR GFR 0.54 MG/DL (0.70-1.30); GLOMERULAR FILTRATION RATE > 60.0 (>49); GLUCOSE, FASTING 102 MG/DL (74-106); POTASSIUM SERUM 4.5 MMOL/L (3.5-5.1); SODIUM LEVEL 137 MMOL/L (136-145)
[2024-06-04] MEDS: FOLIC ACID 1MG TAB PO SCH (09:13)
[2024-06-04] MEDS: ESCITALOPRAM OXALATE 10 MG TAB (LEXAPRO) PO SCH (09:13)
[2024-06-04 11:40] LABS: PLATELET COUNT, AUTOMATED 65 10^3/uL (150-450)
[2024-06-04] MEDS ORDERED: ELIQ5TAB PO (11:56)
[2024-06-04] MEDS: IPRATROPIUM 0.02% SOLN 0.5MG 2.5ML NEB INH SCH (13:30)
[2024-06-04] MEDS: LEVALBUTEROL 1.25MG 0.5ML CONCENTRATE NEB INH SCH (13:34)
[2024-06-05] VITALS: O2SAT 94
[2024-06-05 07:00] VITALS: O2SAT 94
[2024-06-05 08:00] VITALS: O2SAT 94
[2024-06-05] MEDS ORDERED: FOLIC ACID 1MG TAB As Ordered ONE (08:31)
[2024-06-05] MEDS ORDERED: ESCITALOPRAM OXALATE 10 MG TAB (LEXAPRO) As Ordered ONE (08:31)
[2024-06-05] MEDS ORDERED: MORPHINE 30 MG SA TAB As Ordered ONE (08:38)
[2024-06-05 09:00] VITALS: O2SAT 93
[2024-06-05] MEDS ORDERED: oxyCODONE 5MG TAB As Ordered ONE (11:35)
[2024-06-05] MEDS ORDERED: MORPHINE 10MG/0.5ML ORAL CONCENTRATE SOLUTION U/D PO PRN (13:50)
[2024-06-05] MEDS ORDERED: ATROPINE SULFATE 1% OPHTH SOLN 2ML BTL XX PRN (13:55)
[2024-06-05] MEDS ORDERED: ATROPINE SULFATE 1% OPHTH SOLN 2ML BTL SL PRN ×2 (14:04→15:45)
[2024-06-05 15:35] LABS: BASO % 0.1 % (0.0-1.0); EOS % 0.2 % (0.0-3.0); HEMATOCRIT 27.5 % (42.0-52.0); HEMOGLOBIN 8.8 g/dl (13.5-17.5); LYMPH # 0.3 10^3/uL (1.5-5.0); LYMPH % 3.2 % (24.0-44.0); MEAN CORPUSCULAR HEMOGLOBIN 28.5 pg (27.0-33.0); MONO # 0.5 10^3/uL (0.0-0.8); MONO % 5.2 % (2.0-8.0); NEUTROPHILS % 86.1 % (36.0-66.0); PLATELET COUNT, AUTOMATED 54 10^3/uL (150-450); RED BLOOD COUNT 3.09 10^6/uL (4.30-6.10); WHITE BLOOD COUNT 9.3 10^3/uL (4.0-10.0)
[2024-06-05 15:36] LABS: BLOOD UREA NITROGEN 28 MG/DL (9-23); CALCIUM LEVEL 7.7 MG/DL (8.3-10.6); CARBON DIOXIDE LEVEL 23 MMOL/L (20-31); CHLORIDE LEVEL 104 MMOL/L (98-107); CREATININE FOR GFR 0.52 MG/DL (0.70-1.30); GLOMERULAR FILTRATION RATE > 60.0 (>49); GLUCOSE, FASTING 131 MG/DL (74-106); MAGNESIUM LEVEL 2.2 MG/DL (1.8-2.4); POTASSIUM SERUM 4.2 MMOL/L (3.5-5.1); SODIUM LEVEL 134 MMOL/L (136-145)
[2024-06-05] MEDS ORDERED: MORPHINE 2 MG/ML 1ML VIAL IV PRN (15:45)
[2024-06-05] MEDS ORDERED: ONDANSETRON 4MG 2ML VIAL IV PRN (15:45)
[2024-06-05] MEDS ORDERED: ONDANSETRON 4MG ORAL DISINTEGRATING TAB PO PRN (15:45)
[2024-06-05] MEDS ORDERED: ACETAMINOPHEN TAB 650MG DOSE (2X325MG) PO PRN (15:45)
[2024-06-05] MEDS ORDERED: LORazepam 2 MG/ML 1ML VIAL IV PRN (15:45)
[2024-06-05] MEDS ORDERED: HYOSCYAMINE SULFATE 0.125 MG SUBL TABLET PO PRN (15:45)
[2024-06-05] MEDS ORDERED: BISACODYL 10MG SUPP PR PRN (15:45)
[2024-06-05] MEDS ORDERED: FLEET ENEMA PR PRN (15:45)
[2024-06-05] MEDS ORDERED: ACETAMINOPHEN 650MG SUPP PR PRN (15:45)
[2024-06-05] MEDS: MORPHINE 10MG/0.5ML ORAL CONCENTRATE SOLUTION U/D SL PRN (18:01)
[2024-06-05 19:00] VITALS: BP 117/67; TEMP 97.3; O2SAT 96
[2024-06-06] MEDS: LORazepam 1 MG TAB PO PRN (12:44)
[2024-06-07] MEDS: SCOPOLAMINE 1MG TRANSDERMAL PATCH TOP PRN (09:20)
[2024-06-10] MEDS ORDERED: APIXABAN 5 MG TAB (ELIQUIS) PO SCH (09:00)
== END 2024-06-07 15:35 | disposition expired | DRG 133 ==
LOC: M ED 09:51 → M ED INP 14:05 → M PCU 15:24 → M MSPAV 06-06 09:24
PROVIDERS: ADMIT Internal Medicine; ATTEND Internal Medicine
DX: J96.01 Acute respiratory failure with hypoxia (principal); I26.99 Other pulmonary embolism without acute cor pulmonale; R57.9 Shock, unspecified; C78.7 Secondary malignant neoplasm of liver and intrahepatic bile duct; C79.31 Secondary malignant neoplasm of brain; E87.5 Hyperkalemia; D62 Acute posthemorrhagic anemia; C79.51 Secondary malignant neoplasm of bone; D69.6 Thrombocytopenia, unspecified; C79.70 Secondary malignant neoplasm of unspecified adrenal gland; R04.2 Hemoptysis; I82.409 Acute embolism and thrombosis of unspecified deep veins of unspecified lower extremity; C34.11 Malignant neoplasm of upper lobe, right bronchus or lung; R74.01 Elevation of levels of liver transaminase levels; Z66 Do not resuscitate; Z79.891 Long term (current) use of opiate analgesic; Z79.899 Other long term (current) drug therapy; Z79.52 Long term (current) use of systemic steroids; Z92.3 Personal history of irradiation; G89.29 Other chronic pain; Z79.01 Long term (current) use of anticoagulants; I10 Essential (primary) hypertension; E78.5 Hyperlipidemia, unspecified; M10.9 Gout, unspecified; F41.9 Anxiety disorder, unspecified; Z90.49 Acquired absence of other specified parts of digestive tract; Z90.79 Acquired absence of other genital organ(s); Z85.46 Personal history of malignant neoplasm of prostate; Z87.891 Personal history of nicotine dependence